=== PATIENT | female | born 1990 | race Caucasian/White ===

== ENCOUNTER 2017-12-23 05:01 | Emergency (ER) | payer BC, MEDICAID, SELFPAY ==
[2017-12-23 05:02] VITALS: PULSE 104; RESP 20; TEMP 37.1; O2SAT 96; BMI 62.1
--- NOTE | 2017-12-23 05:20 | ED.DCSUM_ITS ---
- ER Visit Summary Date of Service: 12/23/17 Chief Complaint: [] Nausea and vomiting History of Present Illness: The patient is a 27 F [] beginning yesterday. Patient reports she had a pyeloplasty on the left side done on November 10, 2017. She reports she is currently being treated for UTI on Keflex. This antibiotic regimen was started yesterday. Patient denies fevers. Reports discomfort in her left upper quadrant. She reports this is always the area she has pain when she has issues with her left kidney. She denies flank pain. No other complaints at this time. Physical Examination: [] Afebrile, vital signs stable. Morbidly obese female in no acute distress. Cardiovascular exam is regular rate and rhythm. Lungs clear to auscultation. Slight left upper quadrant tenderness on exam. No guarding or rebound noted. Test Results: [] White blood cell count 12.2. Electrolytes normal. Urinalysis positive for leukocytes with 50-100 white blood cells. Emergency Department Course and Treatment: [] She given intravenous fluids, Phenergan. After urinalysis returned patient was given intravenous ceftriaxone and 0.5 mg IV Dilaudid. Patient was requesting admission. She has stable vital signs and appears well. I did not feel she was a good candidate for inpatient admission. She was given a dose of ceftriaxone and a prescription for Bactrim DS # 14. She was encouraged to follow-up with her primary care physician. Treatment Plan: [] Discharge on oral antibiotics. Disposition: [] Discharge, stable. Impression: [] UTI This note was generated with [employer] dictation software. It may contain incorrect words, spelling, and punctuation that were not noted in review of the chart prior to signing ED Disposition - Plan for ED Patient: Chief Complaint: Nausea/Vomiting/Diarrhea Referrals: Sonja Farnsworth, NICANOR-C [Primary Care Provider] -
[2017-12-23] MEDS: 0.9% Normal Saline 1,000 ML 1000 ML IV (05:33)
[2017-12-23 05:41] LABS: Mucous, Urine 0 SEEN /hpf (<or=2+)
[2017-12-23 05:44] LABS: Color, Urine Yellow (Yellow); Glucose, Dipstick Normal (Normal); Ketone-Dipstick Negative (Negative); Leukocyte Esterase-Dipstick 500 /ul (Negative); Nitrite-Dipstick Negative (Negative); Occult Blood-Urine 50 /ul (Negative); Protein-Dipstick 30 mg/dl (Negative); Urine Bilirubin Dipstick Negative (Negative); Urine Clarity Sl. Cloudy (Clear); Urine Urobilinogen Normal (Normal)
[2017-12-23 05:46] LABS: Absolute Lymphocyte Count 1.12 X10^3/ul (0.83-4.51); Absolute Neutrophil Count 9.7 X10^3/uL (2.0-7.7); Basophil# 0.01 X10^3/uL; Basophil% 0.1 % (0-1); Eosinophil# 0.35 X10^3/uL; Eosinophils% 2.9 % (0-5); Hematocrit 42.4 % (37-47); Hemoglobin 13.3 g/dl (12.0-15.0); Lymphocyte # 1.12 X10^3/ul (4.0); Lymphocyte % 9.2 % (19-41); Mean Corp Hgb Conc 31.4 g/gl (32-36); Mean Corpuscular Hgb 26.5 pg (27.0-32.0); Mean Corpuscular Volume 84.6 fL (81-99); Mean Platelet Vol. 11.4 fl (6.2-12.0); Monocyte# 0.99 X10^3/uL; Monocyte% 8.1 % (0-10); Neutrophil # 9.72 X10^3/uL (2.7-7.7); Neutrophil % 79.6 % (47-70); Platelet Count 238 K/mm3 (150-450); RBC Distribution Width CV 15.4 % (11.6-14.6); RBC Distribution Width SD 47.6 fl (35.1-43.9); Red Blood Count 5.01 M/mm3 (4.2-5.4); White Blood Count 12.2 K/mm3 (4.4-11.0)
[2017-12-23 05:52] LABS: POSITIVE COUNT NO; POSITIVE DIFFERENTIAL NO; POSITIVE MORPHOLOGY NO
[2017-12-23 05:57] LABS: Amorphous Sediment 1+ URATE; Bacteria RARE /hpf (None Seen); Red Blood Cells-Urine 0-5 SEEN /hpf (0-5); Squamous Epithelial Cells - UA 5-10 SEEN /hpf (5-10); White Blood Cells 50-100 SEEN /hpf (0-5)
[2017-12-23 06:07] LABS: Anion Gap 9 (5-15); BUN 27 mg/dL (7-18); BUN/Creat Ratio 30.1 RATIO (10-20); Calcium,Total 8.5 mg/dL (8.5-10.1); Chloride 108 mmol/L (98-107); EST Glomerular Filtration Rate 81 mL/min (>60); Est Glom Filt Rate - Afr Amer 98 mL/min (>60); Estimated Creatinine Clearance 89.45 ml/min; Glucose 137 mg/dL (70-110); Potassium 4.2 mmol/L (3.5-5.1); Sodium Level 139 mmol/L (136-145)
--- NOTE | 2017-12-23 06:30 | ED.DEP ---
ED Disposition - Plan for ED Patient: Disposition: Home or Assisted Living Chief Complaint: Nausea/Vomiting/Diarrhea Instructions: ED Kidney Infec Female Prescriptions: Sulfamethoxazole/Trimethoprim [Bactrim Ds Tablet] 1 ea PO BID #20 tab Referrals: Sonja Farnsworth, [employer] TECHNICIAN-C [Primary Care Provider] -
[2017-12-23] MEDS: HYDROmorphone 1 MG/ML Syringe 0.5 MG IV (06:31)
--- NOTE | 2017-12-23 06:34 | DCINST.ED_ITS ---
ED Disposition - Plan for ED Patient: Disposition: Home or Assisted Living Chief Complaint: Nausea/Vomiting/Diarrhea Instructions: ED Kidney Infec Female Prescriptions: Sulfamethoxazole/Trimethoprim [Bactrim Ds Tablet] 1 ea PO BID #20 tab Referrals: Sonja Farnsworth, ECOLOGICAL TECHNICAL OFFICER-C [Primary Care Provider] -
[2017-12-23 07:13] VITALS: BP 133/101; PULSE 79; RESP 14; O2SAT 98
== END 2017-12-23 07:14 | disposition home or self-care (01) ==
PROVIDERS: Emergency Provider Emergency Medicine; Family Provider Nurse Practitioner Family; PCP Nurse Practitioner Family
DX: N39.0 Urinary tract infection, site not specified (principal); E66.01 Morbid (severe) obesity due to excess calories; J45.909 Unspecified asthma, uncomplicated; I10 Essential (primary) hypertension; Z72.0 Tobacco use; Z79.51 Long term (current) use of inhaled steroids; Z79.899 Other long term (current) drug therapy
CPT/HCPCS: 80048; 81001; 85025; 96361; 96365; 96375; 99285; A4216; J2405

== ENCOUNTER 2017-12-28 23:41 | Emergency (ER) | payer BC, MEDICAID, SELFPAY ==
[2017-12-28 23:42] VITALS: BP 152/97; PULSE 116; RESP 18; TEMP 37; O2SAT 96; BMI 61.2
--- NOTE | 2017-12-29 01:18 | ED.VISSUMM ---
- ER Visit Summary Date of Service: 12/29/17 Chief Complaint: [] Right calf laceration History of Present Illness: The patient is a 27 F who cut her calf 2 hours ago on purpose with a razor. She has a history of self injury behavior. She is not suicidal. She is remorseful. She has done this over 100 times in the past. She has a psychiatrist and counselor and is on medication. Physical Examination: [] Vital signs reviewed General: Well-nourished well-developed Head: Normocephalic atraumatic Eyes: Pupils equal round and reactive to light extraocular movements intact ENT: TMs clear no hemotympanum no trauma Neck: Nontender full range of motion Cardiovascular: Regular rate rhythm no murmurs normal S1-S2 Respiratory: No distress clear to auscultation bilaterally chest nontender Abdomen: Soft nontender nondistended normal bowel sounds no masses Back: Nontender no CVA tenderness Extremities: Nontender active range of motion ?4 extremities no trauma Skin: 6 cm laceration right lateral calf. 2 cm laceration right lateral calf. Neuro alert oriented cranial nerves II through XII intact normal strength sensation reflexes Test Results: [] Emergency Department Course and Treatment: [] Discussed with crisis. At this time patient is not suicidal. She has a history of cutting behavior. I do not feel she needs to seek crisis at this time. Her wounds were cleansed and closed with 7 and 3 simple sutures respectively. She will follow-up as an outpatient. Treatment Plan: [] Disposition: [] Impression: [] Right calf laceration 6 cm status post suture ?7 Right calf laceration 2 cm status post 3 suture This note was generated with [employer] dictation software. It may contain incorrect words, spelling, and punctuation that were not noted in review of the chart prior to signing ED Disposition - Plan for ED Patient: Chief Complaint: Laceration Referrals: Sonja Farnsworth NP-C [Primary Care Provider] -
--- NOTE | 2017-12-29 01:20 | ED.DEP ---
ED Disposition - Plan for ED Patient: Disposition: Home or Assisted Living Chief Complaint: Laceration Instructions: ED Laceration All Referrals: Sonja Farnsworth, NICANOR-C [Primary Care Provider] -
--- NOTE | 2017-12-29 01:45 | NURSING ---
THIS NURSE WENT TO DISCHARGE PATIENT AND SHE ALREADY LEFT. DR. LOWE MADE AWARE.
== END 2017-12-29 01:48 | disposition home or self-care (01) ==
PROVIDERS: Emergency Provider Emergency Medicine; Family Provider Nurse Practitioner Family; PCP Nurse Practitioner Family
DX: S81.811A Laceration without foreign body, right lower leg, initial encounter (principal); E66.9 Obesity, unspecified; J45.909 Unspecified asthma, uncomplicated; F32.9 Major depressive disorder, single episode, unspecified; Z91.5 Personal history of self-harm; Z79.51 Long term (current) use of inhaled steroids; Z79.899 Other long term (current) drug therapy; X78.8XXA Intentional self-harm by other sharp object, initial encounter; Y93.89 Activity, other specified; Y92.89 Other specified places as the place of occurrence of the external cause; Y99.8 Other external cause status
CPT/HCPCS: 12004; 99281

== ENCOUNTER 2018-02-02 10:06 | Outpatient (RCR) | payer MEDICAID, SELFPAY ==
[2018-02-02 11:17] VITALS: BP 148/99; PULSE 89; RESP 18; TEMP 37.2
[2018-02-02 16:24] LABS: Hematocrit 41.6 % (37-47); Hemoglobin 13.4 g/dl (12.0-15.0); Mean Corp Hgb Conc 32.2 g/gl (32-36); Mean Corpuscular Hgb 26.9 pg (27.0-32.0); Mean Corpuscular Volume 83.4 fL (81-99); Mean Platelet Vol. 11.3 fl (6.2-12.0); Platelet Count 319 K/mm3 (150-450); RBC Distribution Width CV 16.4 % (11.6-14.6); RBC Distribution Width SD 48.7 fl (35.1-43.9); Red Blood Count 4.99 M/mm3 (4.2-5.4); White Blood Count 9.3 K/mm3 (4.4-11.0)
[2018-02-02 16:25] LABS: Scan Indicated on CBC? Y/N NO
[2018-02-02 17:06] LABS: ALB/GLOB Ratio 0.8 RATIO (0.9-2.4); AST(SGOT) 11 U/L (15-37); Alanine Aminotransfer ALT/SGPT 17 U/L (13-56); Albumin, Serum 3.2 g/dL (3.2-5.0); Alkaline Phosphatase 111 U/L (45-117); Anion Gap 9 (5-15); BUN 10 mg/dL (7-18); Calcium,Total 8.6 mg/dL (8.5-10.1); Chloride 107 mmol/L (98-107); Creatinine, Serum 0.62 mg/dL (0.55-1.02); EST Glomerular Filtration Rate 123 mL/min (>60); Est Glom Filt Rate - Afr Amer 149 mL/min (>60); Globulin 4.1 g/dL (2.2-4.2); Glucose 92 mg/dL (74-106); Potassium 3.8 mmol/L (3.5-5.1); Prealbumin 17.7 mg/dL (20.0-40.0); Protein, Total 7.3 g/dL (6.4-8.2); Sodium Level 141 mmol/L (136-145)
[2018-02-02 17:08] LABS: Hemoglobin A1c 5.8 % (4.2-6.3)
--- NOTE | 2018-02-02 17:52 | PCM.WC.HP ---
(1) Open wound of left wrist Status: Acute Code(s): S61.502A - Unspecified open wound of left wrist, initial encounter (2) Open wound of left forearm Status: Acute Code(s): S51.802A - Unspecified open wound of left forearm, initial encounter (3) Borderline type 2 diabetes mellitus Status: Acute Code(s): R73.03 - Prediabetes (4) Self-harming behavior Status: Acute (5) Non-suicidal self harm Status: Acute Code(s): R45.89 - Other symptoms and signs involving emotional state History of Present Illness Date of Service: 02/02/18 Chief Complaint: Open wounds left wrist. History of Wound: Ms. Padilla is a 28-year-old with past medical history of borderline diabetes, self mutilation/harm and bipolar disorder who was referred here due to left wrist wounds of 3 weeks duration. She states that she had put a heat pad on her wrist intentionally to cause the wound but did not think it would be as severe as it currently is. She was subsequently admitted to inpatient psych and has had Silvadene daily applied to the wound. She states that this has helped somewhat however it has not significantly caused any changes. She reports a prior history of prior self cuts but insists that she had no cuts to her wrist. She also reports a prior history of MRSA but denies any significant discharge or tenderness around her wrist. She otherwise feels well and denies chills, fever, nausea, vomiting or any change in her bowel habits. Past Medical History Allergies/Adverse Reactions: Allergies clindamycin Adverse Reaction (Verified 12/28/17 23:42) Upset Stomach Home Medications: Ambulatory Orders Medication Instructions Recorded Clonazepam [Klonopin] 1 mg PO BID 06/07/17 Albuterol Inhaler [Ventolin Hfa 1 - 2 puff INHALATION Q4H PRN PRN 10/14/17 (SP)] Cholecalciferol (Vitamin D3) 1,000 unit PO DAILY 02/02/18 [Vitamin D3] [facility] Carbonate 1,200 mg PO DAILY 02/02/18 Olanzapine [Zyprexa] 25 mg PO DAILY 02/02/18 Prazosin HCl [Minipress] 4 mg PO DAILY 02/02/18 TraMADol [Ultram (G)] 50 mg PO 4X/DAY 02/02/18 Smoking Status: Heavy Smoker (>10/day) Review of Systems Constitutional: Denies: Anorexia, Chills, Fever Eyes: Denies: Pain, Redness HEENT: Denies: Difficulty Hearing, Difficulty Swallowing Cardiovascular: Denies: Chest Pain, Chest Tightness Respiratory: Denies: Cough, Hemoptysis Gastrointestinal: Denies: Abdominal Pain, Hematemesis, Vomiting Genitourinary: Denies: Dysuria Skin: Denies: Dryness, Jaundice - Physical Exam Vital Signs Temp Pulse Resp BP 98.9 F 89 18 148/99 H 02/02/18 11:17 02/02/18 11:17 02/02/18 11:17 02/02/18 11:17 General: Alert, Oriented x3, Cooperative, No apparent distress HEENT: Atraumatic, Normocephalic Oral: Moist Mucosa Neck: Supple Lungs: Normal air movement Cardiovascular: Regular rate, Regular Rhythm, Normal S1, Normal S2 Abdomen: Soft, Non Tender, Obese Extremities: No cyanosis, No edema Skin: Ulcer/ Wound Wound Measurements and Assessment WC - Nurse 1 - General Ulcer Measurement Start: 02/02/18 11:05 Freq: Status: Active Protocol: Activity Type Activity Date Activity User E-Sign Co-Sign Detail Recorded Client Recorded Date Recorded By Document 02/02/18 11:17 [email or web address] 02/02/18 11:26 RB 02/02/18 11:17 Wound Center Nurse 1 [Ulcer Assessment] #1 Left Wrist -Combined with other wound No -Current Size (cm) - Length 2.4 -Current Size (cm) - Width 8.2 -Current Size (cm) - Depth 0.2 -Total Square Cm 19.68 -Photo Taken Yes -Epithelialization Small 1-33% -Tunneling No -Undermining/Tunneling No -Circular Undermining No -Classification - Thickness Full Thickness without Exposed Support Structure -Exudate Amt Small (1-33%) -Exudate Type Serosanguineous -Wound Margin Distinct, Outline Attached -Granulation Amt Large (67-100%) -Granulation Quality [place] -Slough/Fibrin Yes -Necrosis Amt Small (1-33%) -Necrotic Tissue Type Adherent Slough -Structure Exposed N/A -Texture (Sharonda-wound Skin Appearance) Assessed -Moisture (Sharonda-wound Skin Appearance Assessed ) -Color (Sharonda-wound Skin Appearance) Assessed -Temperature (Sharonda-wound Skin No Abnormality Appearance) (Pt Warm) -Tenderness on Palpation (Sharonda-wound No Skin Appearance) -Ulcer Cleansing Rinsed/ Irrigated with Saline -Foul Odor after Cleansing No -Anesthetic Used 4% Lidocaine Solution WC - Nurse 2 - General Ulcer CM Notes Start: 02/02/18 11:05 Freq: Status: Active Protocol: Activity Type Activity Date Activity User E-Sign Co-Sign Detail Recorded Client Recorded Date Recorded By Document 02/02/18 11:59 DV [id number] 02/02/18 12:19 DV 02/02/18 11:59 Wound Center Nurse 2 [Procedure/Treatment] #2 Left Distal Lateral Forearm -Time 12:14 -Correct Patient Yes -Correct Side, Site, Position Yes -Correct Procedure Yes -Procedure Performed Yes -Type of Procedure Debridement -Clinical Debridement Subcutaneous -Post Debridement Size (cm) - Length 0.4 -Post Debridement Size (cm) - Width 1.1 -Post Debridement Size (cm) - Depth 0.2 -Total Square Cm 0.44 -Wound/Ulcer Outcome Not Healed -Ulcer Cleansing Rinsed/ Irrigated with Saline -Foul Odor after Cleansing No -Bioengineered Tissue No -Bleeding Controlled with Pressure -Treatment Response Procedure Tolerated Well #1 Left Wrist -Time 12:17 -Correct Patient Yes -Correct Side, Site, Position Yes -Correct Procedure Yes -Procedure Performed Yes -Type of Procedure Debridement -Clinical Debridement Subcutaneous -Post Debridement Size (cm) - Length 2.3 -Post Debridement Size (cm) - Width 6.0 -Post Debridement Size (cm) - Depth 0.2 -Total Square Cm 13.80 -Wound/Ulcer Outcome Not Healed -Ulcer Cleansing Rinsed/ Irrigated with Saline -Foul Odor after Cleansing No -Bioengineered Tissue No -Bleeding Controlled with Pressure -Treatment Response Procedure Tolerated Well [See Physician Procedure note for Specifics] Pain Scale: 0-10 Numeric [Pain] -Is Patient Pain Free? Yes Musculoskeletal: No Muscle Wasting Neurological: Cranial nerves II-XII grossly intact Psych/Mental Status: Normal Affect Debridement Note Post-Debridement Measurements/Treatment [email or web address] - Nurse 2 - General Ulcer CM Notes Start: 02/02/18 11:05 Freq: Status: Active Protocol: Activity Type Activity Date Activity User E-Sign Co-Sign Detail Recorded Client Recorded Date Recorded By Document 02/02/18 11:59 DV [id number] 02/02/18 12:19 DV 02/02/18 11:59 Wound Center Nurse 2 #2 Left Distal Lateral Forearm -Time 12:14 -Correct Patient Yes -Correct Side, Site, Position Yes -Correct Procedure Yes -Procedure Performed Yes -Type of Procedure Debridement -Clinical Debridement Subcutaneous -Post Debridement Size (cm) - Length 0.4 -Post Debridement Size (cm) - Width 1.1 -Post Debridement Size (cm) - Depth 0.2 -Total Square Cm 0.44 -Wound/Ulcer Outcome Not Healed -Ulcer Cleansing Rinsed/ Irrigated with Saline -Foul Odor after Cleansing No -Bioengineered Tissue No -Bleeding Controlled with Pressure -Treatment Response Procedure Tolerated Well #1 Left Wrist -Time 12:17 -Correct Patient Yes -Correct Side, Site, Position Yes -Correct Procedure Yes -Procedure Performed Yes -Type of Procedure Debridement -Clinical Debridement Subcutaneous -Post Debridement Size (cm) - Length 2.3 -Post Debridement Size (cm) - Width 6.0 -Post Debridement Size (cm) - Depth 0.2 -Total Square Cm 13.80 -Wound/Ulcer Outcome Not Healed -Ulcer Cleansing Rinsed/ Irrigated with Saline -Foul Odor after Cleansing No -Bioengineered Tissue No -Bleeding Controlled with Pressure -Treatment Response Procedure Tolerated Well Pain Scale: 0-10 Numeric Is Patient Pain Free? Yes Wound debrided: Left wrist wound Wound Grade/Stage: Stage II Type of Debridement: Excisional debridement Anesthesia Used: 4% Lidocaine Solution Depth: Down to and including healthy tissue, in the subcutaneous layer Percentage of wound debrided: 100 Instrument Used: 5mm curette Tissue Removed: Slough, Biofilm and Devitalized tissue Severity: Fat Layer Exposed Amount of bleeding with debridement: Mild Bleeding Controlled with: Pressure Patient tolerated procedure well - Additional Wound Wound debrided: Left lateral forearm Wound Grade/Stage: Stage II Type of Debridement: Excisional debridement Anesthesia Used: 4% Lidocaine Solution Depth: Down to and including healthy tissue, in the subcutaneous layer Percentage of wound debrided: 100 Instrument Used: 5mm curette Tissue Removed: Slough and Devitalized tissue Severity: Fat Layer Exposed Amount of bleeding with debridement: Mild Bleeding Controlled with: Pressure Patient tolerated procedure: Patient tolerated procedure well Assessment/Plan Assessment: Open wound to left wrist with fat layer exposed. Open wound to the left lateral forearm with fat layer exposed. Self harming/mutilation behavior. Borderline diabetes mellitus. Plan: History of burn wound about 3 weeks ago to her left wrist and lateral forearm. Intentional. Has been in inpatient psych for the last 3 weeks, recently discharged. She has had daily dressing with Silvadene during her inpatient stay. No significant progress in wound. Wound debridement done as documented. Procedure was well-tolerated. Cultures taken. CBC, CMP, A1c and prealbumin also ordered. I believe patient will benefit from Purapply initially and possibly subsequently a skin substitute as she has currently used Silvadene for 3 weeks without significant change. Fibrochol with Adaptic covering daily for now. High-protein diet/supplements. Follow-up in 1 week. This note was generated with [employer] dictation software. It may contain incorrect words, spelling, and punctuation that were not noted in checking the note before signing.
== END 2018-02-25 23:59 ==
LOC: WC 10:06
PROVIDERS: Family Provider Nurse Practitioner Family; PCP Nurse Practitioner Family; Visit Provider Internal Medicine
DX: T23.072A Burn of unspecified degree of left wrist, initial encounter (principal); T22.012A Burn of unspecified degree of left forearm, initial encounter; T79.8XXA Other early complications of trauma, initial encounter; X19.XXXA Contact with other heat and hot substances, initial encounter; R73.09 Other abnormal glucose; S51.802A Unspecified open wound of left forearm, initial encounter; S61.502A Unspecified open wound of left wrist, initial encounter; R45.89 Other symptoms and signs involving emotional state; Z91.5 Personal history of self-harm; Z86.14 Personal history of Methicillin resistant Staphylococcus aureus infection; F17.200 Nicotine dependence, unspecified, uncomplicated; Z79.899 Other long term (current) drug therapy
CPT/HCPCS: 11042; 80053; 83036; 84134; 85027; 87070; 87075; 87077; 87186; 87205; 99213; G0463

== ENCOUNTER 2018-06-12 16:37 | Observation (INO) | payer MEDICARE, MEDICAID, SELFPAY ==
[2018-06-12 16:38] VITALS: BP 144/78; PULSE 109; RESP 18; TEMP 37.1; O2SAT 98; BMI 57.2
--- NOTE | 2018-06-12 18:19 | EKG12_ITS ---
Test Reason : SOB Blood Pressure : / mmHG Vent. Rate : 081 BPM Atrial Rate : 081 BPM P-R Int : 156 ms QRS Dur : 088 ms QT Int : 382 ms P-R-T Axes : 041 007 008 degrees QTc Int : 443 ms Normal sinus rhythm Normal ECG Confirmed by CHANDLER RAMIREZ MD ([id number]), art editor ELISE KENDALL ([id number]) on 06/14/2018 2:17:24 PM Referred By: Kurt Cabrera Confirmed By:CHANDLER RAMIREZ MD
--- NOTE | 2018-06-12 18:20 | CT_ITS ---
STUDY: CT ABDOMEN AND PELVIS WITH CONTRAST REASON FOR EXAM: Female, 28 years old. Left upper quadrant pain RADIATION DOSAGE (If Supplied By Facility): CTDIvol = ( 23.88 ) mGy, DLP = ( 1990.31 ) mGycm TECHNIQUE: Transaxial images were obtained from the dome of the diaphragm to the symphysis pubis without oral contrast. 100ML ml of Isovue 300 contrast was administered. Sagittal and coronal images were reconstructed. Individualized dose optimization techniques were used for this CT. COMPARISON: None. FINDINGS: The visualized lung bases are unremarkable. The visualized portions of the heart are within normal limits. Normal liver. Normal gallbladder and extrahepatic biliary system. Normal spleen. Normal pancreas. Normal bilateral adrenal glands. Normal right kidney. Mild pelvicalyceal fullness/hydronephrosis of the left kidney. Normal visualized stomach. Normal small intestine. Normal colon. The appendix is visualized and appears normal. Normal abdominal aorta. Normal inferior vena cava. Normal retroperitoneum. Normal urinary bladder. Normal uterus. Normal abdominal wall. Normal osseous structures. CT/Abdomen/Pelvis W IV Cont ONLY IMPRESSION: Mild left pelvicalyceal fullness/ hydronephrosis. Electronically Signed: Jr Hunter DO at 20:13 EDT Tel [phone], Service support ,
--- NOTE | 2018-06-12 18:22 | CT_ITS ---
STUDY: CTA CHEST REASON FOR EXAM: Female, 28 years old. Left upper quadrant pain RADIATION DOSAGE (If Supplied By Facility): CTDIvol = ( 23.88 ) mGy, DLP = ( 1990.31 ) mGycm TECHNIQUE: The examination was performed with the intravenous administration of 100ML ml of Isovue 250 contrast material. Post-processing of the angiographic images was performed, with multiplanar reformation and 3D reconstruction. Individualized dose optimization techniques were used for this CT. COMPARISON: None. FINDINGS: Normal enhancement of the main pulmonary artery and right and left pulmonary arteries. Normal enhancement of the bilateral peripheral pulmonary arteries. There is no demonstrated pulmonary embolism. Normal thoracic aorta and visualized great vessels. There is no demonstrated aortic dissection. Normal heart and pericardium. Normal mediastinum. Normal hilar regions. Normal visualized trachea and bronchi. The lungs are well expanded. Normal pulmonary parenchyma. Normal pleura. Normal chest wall structures. Mild degenerative vertebral changes. Normal visualized upper abdomen. CT/CTA Chest W/WO Contrast IMPRESSION: Normal CTA chest examination, without a demonstrated pulmonary embolism or arterial dissection. Electronically Signed: Jr Hunter DO at 20:21 EDT Tel [phone], Service support ,
[2018-06-12 18:51] LABS: Absolute Neutrophil Count 7.5 X10^3/uL (2.0-7.7); Basophil# 0.03 X10^3/uL; Basophil% 0.3 % (0-1); Hematocrit 41.7 % (37-47); Hemoglobin 13.7 g/dl (12.0-15.0); Lymphocyte % 15.9 % (19-41); Mean Corp Hgb Conc 32.9 g/gl (32-36); Mean Corpuscular Hgb 26.4 pg (27.0-32.0); Mean Corpuscular Volume 80.3 fL (81-99); Mean Platelet Vol. 11.4 fl (6.2-12.0); Monocyte# 0.74 X10^3/uL; Monocyte% 7.3 % (0-10); Neutrophil % 74.3 % (47-70); Platelet Count 298 K/mm3 (150-450); Red Blood Count 5.19 M/mm3 (4.2-5.4); White Blood Count 10.1 K/mm3 (4.4-11.0)
[2018-06-12 18:52] LABS: POSITIVE COUNT NO; POSITIVE DIFFERENTIAL NO; POSITIVE MORPHOLOGY NO
[2018-06-12] MEDS: 0.9% Normal Saline 1,000 ML 1000 ML IV (18:53)
[2018-06-12] MEDS: Ondansetron 4 MG/2 ML Vial IV ×2 (18:53→23:28)
[2018-06-12] MEDS: Morphine 4 MG/ML Syringe IV (18:53)
[2018-06-12 19:00] LABS: Color, Urine Amber (Yellow); Glucose, Dipstick Normal (Normal); Ketone-Dipstick 5 mg/dl (Negative); Leukocyte Esterase-Dipstick 500 /ul (Negative); Nitrite-Dipstick Positive (Negative); Occult Blood-Urine 250 /ul (Negative); Protein-Dipstick 30 mg/dl (Negative); Specific Gravity, Urine 1.025 (1.002-1.030); Urine Clarity Cloudy (Clear); Urine Urobilinogen 1 mg/dl (Normal)
[2018-06-12 19:13] LABS: Urine Bilirubin Dipstick 1 mg/dL (Negative)
[2018-06-12 19:14] LABS: Bacteria RARE /hpf (None Seen); Mucous, Urine RARE /hpf (<or=2+); Red Blood Cells-Urine > 100 SEEN /hpf (0-5); Squamous Epithelial Cells - UA 0-5 SEEN /hpf (5-10); White Blood Cells 25-50 SEEN /hpf (0-5)
[2018-06-12 19:17] LABS: AST(SGOT) 13 U/L (15-37); Alanine Aminotransfer ALT/SGPT 19 U/L (13-56); Albumin, Serum 3.6 g/dL (3.2-5.0); Alkaline Phosphatase 115 U/L (45-117); Anion Gap 10 (5-15); BUN 11 mg/dL (7-18); BUN/Creat Ratio 14.4 RATIO (10-20); Bilirubin, Direct 0.11 mg/dL (0.00-0.30); Calcium,Total 8.9 mg/dL (8.5-10.1); Chloride 108 mmol/L (98-107); Creatinine, Serum 0.76 mg/dL (0.55-1.02); EST Glomerular Filtration Rate 97 mL/min (>60); Est Glom Filt Rate - Afr Amer 117 mL/min (>60); Estimated Creatinine Clearance 105.01 ml/min; Globulin 4.1 g/dL (2.2-4.2); Glucose 103 mg/dL (74-106); Lipase 49 U/L (73-393); Potassium 3.8 mmol/L (3.5-5.1); Pregnancy, Serum, hCG Quali. NEGATIVE Negative (0-9 Nonpreg); Protein, Total 7.7 g/dL (6.4-8.2); Sodium Level 143 mmol/L (136-145)
--- NOTE | 2018-06-12 21:15 | ED.VISSUMM ---
- ER Visit Summary Date of Service: 06/12/18 Chief Complaint: Abdominal pain History of Present Illness: The patient is a 28 F who presents with abdominal pain. She has been having pain for last 1-2 months. She complains of left upper quadrant abdominal pain and a left posterior shoulder pain. Her pain is worse with inspiration. She also states she feels short of breath. She intermittently feels lightheaded and as if she may pass out. She has had a few episodes of emesis over the weekend but no vomiting today. She denies fevers. She does have a history of multiple ureteral stents and pyeloplasty. Physical Examination: Heart rate 109 vitals otherwise unremarkable Moist mucous membranes Heart regular rhythm tachycardia Lungs are clear Abdomen soft she is tender to palpation in the left upper quadrant Alert Test Results: CBC BMP unremarkable. Hepatic function lipase unremarkable. UA does show 500 leukocyte esterase, positive nitrates, 25-50 WBCs and greater than 100 RBCs. negative. CTA of the chest is normal. CT the abdomen and pelvis shows mild left pericalyceal fullness. Emergency Department Course and Treatment: Given patient's report of shortness of breath near syncope and lightheadedness a CTA of the chest was obtained to rule out PE. This was normal. Her urine does appear obviously infected. Given tachycardia left flank pain and vomiting I do believe this represents pyelonephritis. She was given IV Rocephin. She was discussed with the hospitalist and admitted. Treatment Plan: [] Disposition: Admit Impression: Pyelonephritis This note was generated with [employer] dictation software. It may contain incorrect words, spelling, and punctuation that were not noted in review of the chart prior to signing ED Disposition - Plan for ED Patient: Chief Complaint: Abd Pain Referrals: Sonja Farnsworth, NICANOR-C [Primary Care Provider] -
--- NOTE | 2018-06-12 21:21 | HP.PCM_ITS ---
Problem List (1) Pyelonephritis Status: Acute (2) Nausea and vomiting Status: Acute History of Present Illness Date of Admission: 06/12/18 Chief Complaint: nausea and vomiting The patient is a 28 year old female patient who presents to the ER with nausea and vomiting. She has had increasing left flank pain over the past day or so. She has a history of pyeloplasty in October 2017 and has had recurrence of UTI since. He UA is positive for leukocytes and nitrites and her CT scan shows left hydronephrosis and no renal calculi. Her pain and nausea are now controlled medically. She has a history of multiple mental health diagnoses and repeated self mutilation which does not appear to be an acute issue at this time. She will be admitted overnight for observation of pyelonephritis. Past Medical History Allergies clindamycin Adverse Reaction (Verified 06/12/18 16:37) Upset Stomach Home Medications: Ambulatory Orders Medication Instructions Recorded Clonazepam [Klonopin] 1 mg PO BID 06/07/17 Albuterol Inhaler [Ventolin Hfa 1 - 2 puff INHALATION Q4H PRN PRN 10/14/17 (SP)] Cholecalciferol (Vitamin D3) 1,000 unit PO DAILY 02/02/18 [Vitamin D3] [place] Carbonate 1,200 mg PO DAILY 02/02/18 Olanzapine [Zyprexa] 25 mg PO DAILY 02/02/18 Prazosin HCl [Minipress] 4 mg PO DAILY 02/02/18 traMADol [Ultram (G)] 50 mg PO 4X/DAY 02/02/18 Psychiatric History: Anxiety, Bipolar, Depression, Prior suicide attempt Smoking Status: Current every day smoker Drugs: - - history of narcotic abuse - *Family History Maternal History Items: No pertinent history Review of Systems Constitutional: Denies: Chills, Fever, Weight Change HEENT: Denies: Head Aches, Sinus Congestion, Sinus Drainage Cardiovascular: Denies: Chest Pain, Palpitations Respiratory: Denies: Cough, Shortness of breath at rest, Sputum production Gastrointestinal: Reports: Abdominal Pain, Nausea, Vomiting Genitourinary: Reports: Dysuria, Frequency, Hematuria, Urgency Musculoskeletal: Reports: - - left cva tenderness. Denies: Joint Pain, Joint Tenderness Skin: Denies: Rash, Wounds Neurological: Denies: Numbness, Tingling, Focal weakness Psychiatric: Denies: Anxiety, Depression, Homicidal Ideations, Suicidal Ideations Hematologic/ Lymphatic: Denies: Easy Bruising, Easy Bleeding VTE Information - Inpt Only VTE Present on Admission: No VTE Mechan Device Prophylaxis: None VTE Pharm Prophylaxis ordered?: Yes Patient Problems: Active and Suspected Problems Pyelonephritis (Acute) Nausea and vomiting (Acute) - Physical Exam General: Alert, Oriented x3, Cooperative HEENT: Atraumatic, Normocephalic Neck: Supple Lungs: Clear to auscultation, Normal air movement Cardiovascular: Regular rate, Normal S1, Normal S2, No murmurs Abdomen: Bowel Sounds Present, Soft, Non Tender, Obese, - - +left CVA Extremities: No edema, Capillary Refill Less than 3 Seconds Skin: No rashes, - - multiple scars from previous self mutilation Musculoskeletal: No Tenderness to Palpation of Joints or Extremities Neurological: Neuro grossly intact Psych/Mental Status: Normal Affect, Appropriate Vital Signs Temp Pulse Resp BP Pulse Ox 98.8 F 109 H 18 144/78 H 98 06/12/18 16:38 06/12/18 16:38 06/12/18 16:38 06/12/18 16:38 06/12/18 16:38 Oxygen Delivery Method Room Air Weight: 354 lb 11.58 oz Body Mass Index (BMI) 57.2 Laboratory Tests Past 24 Hrs 06/12/18 06/12/18 06/12/18 18:36 18:41 18:41 WBC 10.1 RBC 5.19 Hgb 13.7 Hct 41.7 MCV 80.3 L MCH 26.4 L MCHC 32.9 RDW 15.0 H RDW Differential 44.0 H Plt Count 298 MPV 11.4 Immature Gran % (Auto) 0.200 Neut % (Auto) 74.3 H Lymph % (Auto) 15.9 L [place] % (Auto) 7.3 Eos % (Auto) 2.0 Baso % (Auto) 0.3 Absolute Neuts (auto) 7.5 Absolute Lymphs (auto) 1.60 Total Counted Not Reportable Sodium 143 Potassium 3.8 Chloride 108 H Carbon Dioxide 25.0 Anion Gap 10 BUN 11 Creatinine 0.76 Estim Creat Clear Calc 105.01 Est GFR (MDRD) Af Amer 117 Est GFR (MDRD) Non-Af 97 BUN/Creatinine Ratio 14.4 Glucose 103 Calcium 8.9 Total Bilirubin 0.40 Direct Bilirubin 0.11 AST 13 L ALT 19 Alkaline Phosphatase 115 Total Protein 7.7 Albumin 3.6 Globulin 4.1 Lipase 49 L Serum , Qual Urine Color Kelsie Urine Clarity Cloudy Urine pH 5.0 Ur Specific [place] 1.025 Urine Protein 30 H Urine Glucose (UA) Normal Urine Ketones 5 H Urine Occult Blood 250 H Urine Nitrite Positive H Urine Bilirubin 1 H Urine Urobilinogen 1 H Ur Leukocyte Esterase 500 H Urine RBC > 100 SEEN Urine WBC 25-50 SEEN Ur Squamous Epith Cells 0-5 SEEN Urine Bacteria RARE Urine Mucus RARE 06/12/18 18:41 WBC RBC Hgb Hct MCV MCH MCHC RDW RDW Differential Plt Count MPV Immature Gran % (Auto) Neut % (Auto) Lymph % (Auto) [place] % (Auto) Eos % (Auto) Baso % (Auto) Absolute Neuts (auto) Absolute Lymphs (auto) Total Counted Sodium Potassium Chloride Carbon Dioxide Anion Gap BUN Creatinine Estim Creat Clear Calc Est GFR (MDRD) Af Amer Est GFR (MDRD) Non-Af BUN/Creatinine Ratio Glucose Calcium Total Bilirubin Direct Bilirubin AST ALT Alkaline Phosphatase Total Protein Albumin Globulin Lipase Serum , Qual NEGATIVE Urine Color Urine Clarity Urine pH Ur Specific [place] Urine Protein Urine Glucose (UA) Urine Ketones Urine Occult Blood Urine Nitrite Urine Bilirubin Urine Urobilinogen Ur Leukocyte Esterase Urine RBC Urine WBC Ur Squamous Epith Cells Urine Bacteria Urine Mucus Assessment/Plan All Active Problems Open wound of left wrist (Acute) Open wound of left forearm (Acute) Borderline type 2 diabetes mellitus (Acute) Self-harming behavior (Acute) Non-suicidal self harm (Acute) Pyelonephritis (Acute) Nausea and vomiting (Acute) Sprain of foot, left (Acute) - pyleonephritis Plan - admit to general medical floor for observation - 1 gram Rocephin IV q day - zofran 4mg IV q8hrs prn - toradol 30mg IV q 6hrs prn pain (no narcotics given past abuse of heroine) - continue routine home medications - LMWH for DVT prophylaxis - CBC BMP in am - normal saline at 100 cc/hr Code Visit OBSV E&M: 23864 Initial observation care L2
[2018-06-12 21:29] VITALS: BP 113/84; PULSE 63; RESP 20; O2SAT 100
[2018-06-12] MEDS: Ceftriaxone 1 GM/50 ML BAG IV (21:40)
[2018-06-12 22:03] VITALS: BP 142/100; PULSE 80; RESP 20; TEMP 36.9; O2SAT 97
[2018-06-12 22:06] VITALS: BMI 57.9
[2018-06-12 22:12] VITALS: BMI 57.9
[2018-06-12] MEDS: Mirtazapine 15 MG Tablet PO (22:52)
[2018-06-12] MEDS: clonazePAM 1 MG Tablet PO (22:52)
[2018-06-12] MEDS: Ketorolac 30 MG/ML Syringe IV (22:53)
[2018-06-13 04:00] VITALS: BP 98/58; PULSE 79; RESP 18; TEMP 36.6; O2SAT 95
--- NOTE | 2018-06-13 07:30 | PCM.PROGNOTE ---
Patient Problems: Active and Suspected Problems Pyelonephritis (Acute) Nausea and vomiting (Acute) Subjective: The patient is a 28-year-old female with a past medical history of anxiety, bipolar disorder, depression with prior suicide attempts, self-inflicted injuries and hx of multiple ureteral stents and pyeloplasty in October 2017 who presented to the ED on 06/12/2018 complaining of nausea and vomiting. She additionally complained of abdominal pain that had persisted for 1-2 months. The pain was located in the left upper quadrant of the abdomen and radiated to the left posterior shoulder. She complained of shortness of breath and a CTA of the chest was obtained and revealed no pulmonary emboli. In the emergency room the UA was positive for leukocytes, RBCs and nitrites and a CT scan showed left hydronephrosis with no renal calculi. White blood cell count was 10.1 with 74% neutrophils. Hemoglobin and platelets were within normal limits. MCV is decreased at 80.3. BMP was unremarkable and the creatinine was 0.76. She was admitted to the hospital and started on ceftriaxone. The urine was obtained by clean catch in a patient with multiple psych disturbances and a BMI in excess of 50. She denies dysuria. She is afebrile and has a normal WBC count and the diff is unremarkable. She refuses to be straight cathed. Will DC on an antibiotic today and have her follow up with her PCP in 5-7 days or her urologist. The mild hydronephrosis on the left may be chronic since she has had multiple ureteral stents and a pyeloplasty. - Physical Exam General: Alert, Cooperative, No apparent distress, - - lying on her side in bed and looks like she has no distress. Not toxic appearing HEENT: Atraumatic, PERRLA, EOMI Oral: Moist Mucosa Lungs: Clear to auscultation, Diminished Cardiovascular: Regular rate, Regular Rhythm, No murmurs Abdomen: Bowel Sounds Present, Soft, Obese, Tender - at the left CVA Skin: No rashes Neurological: Cranial nerves II-XII grossly intact, Neuro grossly intact Vital Signs Temp Pulse Resp BP Pulse Ox 97.8 F 79 18 98/58 L 95 06/13/18 04:00 06/13/18 04:00 06/13/18 04:00 06/13/18 04:00 06/13/18 04:00 Oxygen Delivery Method Room Air Weight: 358 lb 11.073 oz Body Mass Index (BMI) 57.9 Intake and Output for Last 24 Hours 06/11/18 06/12/18 06/13/18 23:59 23:59 23:59 Intake Total 1764 / 1764 Output Total 200 / 200 Balance 1564 / 1564 Medical Necessity - Tobacco Use Smoking Status: Current every day smoker Assessment/Plan All Active Problems Open wound of left wrist (Acute) Open wound of left forearm (Acute) Borderline type 2 diabetes mellitus (Acute) Self-harming behavior (Acute) Non-suicidal self harm (Acute) Pyelonephritis (Acute) Nausea and vomiting (Acute) Sprain of foot, left (Acute) Impressions 1. possible UTI. Pt refuses a straight cath. She is afebrile with a normal WBC and an unremarkable diff. Will DC on Duricef. F/U with PCP or urologist in 5-7 days. 2. Multiple psychiatric disorders complicate care, management 3. Super obesity DC home
--- NOTE | 2018-06-13 08:25 | PCM.DC ---
- Discharge Diagnoses Current Active Problems: Current Active and Chronic Problems Pyelonephritis (Acute) Nausea and vomiting (Acute) You will use the following diet at home:: Other - Resume previous diet Your food should be the consistency of: Regular Your liquids should be the consistency of: Regular/Thin Discharge Activity: Return to Normal Activity Call your doctor if you observe: Fever of 101 or Higher, Inability to urinate, - - recurrent nausea and vomiting Additional Instructions: You may have a urinary tract infection. You have not had a fever and your white blood cell count is normal. You have not vomited since admission to the floor. there is a mild enlargement of the left kidney but your kidney function is normal. Since we do not have any old CT scans on you this may be your normal kidney size since you have had a pyeloplasty and multiple stents. I am discharging you on an antibiotic that you will take twice a day for the next 7 days. Please follow up with your PCP in 5-7 days or the urologist you routinely follow with. Pending Tests on Discharge: none. Allergies/Adverse Reactions: Allergies clindamycin Adverse Reaction (Verified 06/12/18 16:37) Upset Stomach Medications to take at Discharge Clonazepam [Klonopin] 1 mg PO BID 06/07/17 Albuterol Inhaler [Ventolin Hfa] 1 - 2 puff INHALATION Q4H PRN PRN 10/14/17 [place] Carbonate 900 mg PO QHS 02/02/18 Mirtazapine [Remeron] 15 mg PO QHS 06/12/18 Cefadroxil 1 gm PO BID #14 tab 06/13/18 The following prescriptions were given: Cefadroxil 1 gm PO BID #14 tab Primary Care Physician: Sonja Farnsworth NP-C [Primary Care Provider] - Please follow up with your Primary Care Physician in: 5-7 days Test Results: Test results from this visit will be discussed in further detail at your follow-up appointment, if applicable. Proposed Discharge Date: 06/13/18
--- NOTE | 2018-06-13 08:35 | DCINST_ITS ---
- Discharge Diagnoses Current Active Problems: Current Active and Chronic Problems Pyelonephritis (Acute) Nausea and vomiting (Acute) You will use the following diet at home:: Other - Resume previous diet Your food should be the consistency of: Regular Your liquids should be the consistency of: Regular/Thin Discharge Activity: Return to Normal Activity Call your doctor if you observe: Fever of 101 or Higher, Inability to urinate, - - recurrent nausea and vomiting Additional Instructions: You may have a urinary tract infection. You have not had a fever and your white blood cell count is normal. You have not vomited since admission to the floor. there is a mild enlargement of the left kidney but your kidney function is normal. Since we do not have any old CT scans on you this may be your normal kidney size since you have had a pyeloplasty and multiple stents. I am discharging you on an antibiotic that you will take twice a day for the next 7 days. Please follow up with your PCP in 5-7 days or the urologist you routinely follow with. Pending Tests on Discharge: none. Allergies/Adverse Reactions: Allergies clindamycin Adverse Reaction (Verified 06/12/18 16:37) Upset Stomach Medications to take at Discharge Clonazepam [Klonopin] 1 mg PO BID 06/07/17 Albuterol Inhaler [Ventolin Hfa] 1 - 2 puff INHALATION Q4H PRN PRN 10/14/17 [place] Carbonate 900 mg PO QHS 02/02/18 Mirtazapine [Remeron] 15 mg PO QHS 06/12/18 Cefadroxil 1 gm PO BID #14 tab 06/13/18 The following prescriptions were given: Cefadroxil 1 gm PO BID #14 tab Primary Care Physician: Sonja Farnsworth NP-C [Primary Care Provider] - Please follow up with your Primary Care Physician in: 5-7 days Test Results: Test results from this visit will be discussed in further detail at your follow- up appointment, if applicable. Proposed Discharge Date: 06/13/18
--- NOTE | 2018-06-13 08:44 | PCM.DC.SUM ---
Discharge Date and Diagnosis - Problem List Patient Problems: Active and Suspected Problems Possible urinary tract infection (Acute) Date of Admission: 06/12/18 Date of Discharge: 06/13/18 - Primary Discharge Diagnosis Active and Suspected Problems Possible urinary tract infection (Acute) - Secondary Discharge Diagnosis Chronic Problems Chronic anxiety (Chronic) Bipolar disorder (Chronic) Super obese (Chronic) Borderline type 2 diabetes mellitus (Chronic) Self-harming behavior (Chronic) Non-suicidal self harm (Chronic) Hospital Course and Treatment Imaging Results: Clinical Impression(s) from Imaging Studies Abdomen/Pelvis CT 06/12/18 18:20 IMPRESSION: Mild left pelvicalyceal fullness/ hydronephrosis. Electronically Signed: Jr Hunter DO at 20:13 EDT Tel [phone], Service support , Chest CTA 06/12/18 18:22 IMPRESSION: Normal CTA chest examination, without a demonstrated pulmonary embolism or arterial dissection. Electronically Signed: Jr Hunter DO at 20:21 EDT Tel [phone], Service support , Laboratory Tests 06/12/18 06/12/18 06/12/18 18:36 18:41 18:41 WBC 10.1 RBC 5.19 Hgb 13.7 Hct 41.7 MCV 80.3 L MCH 26.4 L MCHC 32.9 RDW 15.0 H RDW Differential 44.0 H Plt Count 298 MPV 11.4 Immature Gran % (Auto) 0.200 Neut % (Auto) 74.3 H Lymph % (Auto) 15.9 L [place] % (Auto) 7.3 Eos % (Auto) 2.0 Baso % (Auto) 0.3 Absolute Neuts (auto) 7.5 Absolute Lymphs (auto) 1.60 Total Counted Not Reportable Sodium 143 Potassium 3.8 Chloride 108 H Carbon Dioxide 25.0 Anion Gap 10 BUN 11 Creatinine 0.76 Estim Creat Clear Calc 105.01 Est GFR (MDRD) Af Amer 117 Est GFR (MDRD) Non-Af 97 BUN/Creatinine Ratio 14.4 Glucose 103 Calcium 8.9 Total Bilirubin 0.40 Direct Bilirubin 0.11 AST 13 L ALT 19 Alkaline Phosphatase 115 Total Protein 7.7 Albumin 3.6 Globulin 4.1 Lipase 49 L Serum , Qual Urine Color Kelsie Urine Clarity Cloudy Urine pH 5.0 Ur Specific [place] 1.025 Urine Protein 30 H Urine Glucose (UA) Normal Urine Ketones 5 H Urine Occult Blood 250 H Urine Nitrite Positive H Urine Bilirubin 1 H Urine Urobilinogen 1 H Ur Leukocyte Esterase 500 H Urine RBC > 100 SEEN Urine WBC 25-50 SEEN Ur Squamous Epith Cells 0-5 SEEN Urine Bacteria RARE Urine Mucus RARE 06/12/18 18:41 WBC RBC Hgb Hct MCV MCH MCHC RDW RDW Differential Plt Count MPV Immature Gran % (Auto) Neut % (Auto) Lymph % (Auto) [place] % (Auto) Eos % (Auto) Baso % (Auto) Absolute Neuts (auto) Absolute Lymphs (auto) Total Counted Sodium Potassium Chloride Carbon Dioxide Anion Gap BUN Creatinine Estim Creat Clear Calc Est GFR (MDRD) Af Amer Est GFR (MDRD) Non-Af BUN/Creatinine Ratio Glucose Calcium Total Bilirubin Direct Bilirubin AST ALT Alkaline Phosphatase Total Protein Albumin Globulin Lipase Serum , Qual NEGATIVE Urine Color Urine Clarity Urine pH Ur Specific [place] Urine Protein Urine Glucose (UA) Urine Ketones Urine Occult Blood Urine Nitrite Urine Bilirubin Urine Urobilinogen Ur Leukocyte Esterase Urine RBC Urine WBC Ur Squamous Epith Cells Urine Bacteria Urine Mucus None Operations: None Procedures: None Summary of Care Provided: The patient is a 28-year-old female with a past medical history of anxiety, bipolar disorder, depression with prior suicide attempts, self-inflicted injuries and hx of multiple ureteral stents and pyeloplasty in October 2017 who presented to the ED on 06/12/2018 complaining of nausea and vomiting. She additionally complained of abdominal pain that had persisted for 1-2 months. The pain was located in the left upper quadrant of the abdomen and radiated to the left posterior shoulder. She complained of shortness of breath and a CTA of the chest was obtained and revealed no pulmonary emboli. In the emergency room the UA was positive for leukocytes, RBCs and nitrites and a CT scan showed mild left hydronephrosis with no renal calculi and no cathi-nephritic stranding. White blood cell count was 10.1 with 74% neutrophils. Hemoglobin and platelets were within normal limits. MCV was decreased at 80.3. BMP was unremarkable and the creatinine was 0.76. She was admitted to the hospital and started on ceftriaxone. The urine was obtained by clean catch in a patient with multiple psych disturbances and a BMI in excess of 50. She had no vomiting while in the hospital and received Zofran only once. She was afebrile throughout her stay. She denied dysuria to me on the day of DC. I did not feel she had pyelonephritis and thought the UA and culture were contaminated. She has had urine cultures at [facility] in the past that came back with mixed GM + and GM Neg organisms. The abdominal pain had been present for a few months and is not new. There was no cathi-nephric stranding. We have no prior CT scans of the abdomen on this patient and she has had multiple ureteral stents and a pyeloplasty at other institutions. It is possible that the mild hydronephrosis on the left is chronic. She was discharged home on 06/13/18 with a prescription for Duricef 1 GM PO BID for 7 days. she was instructed to follow up with her PCP or her urologist in 5-7 days. Discharge Activity: Return to Normal Activity Call your doctor if you observe: Fever of 101 or Higher, Inability to urinate, - - recurrent nausea and vomiting Home Medications: Medications to take at Discharge Clonazepam [Klonopin] 1 mg PO BID 06/07/17 Albuterol Inhaler [Ventolin Hfa] 1 - 2 puff INHALATION Q4H PRN PRN 10/14/17 [place] Carbonate 900 mg PO QHS 02/02/18 Mirtazapine [Remeron] 15 mg PO QHS 06/12/18 Cefadroxil 1 gm PO BID #14 tab 06/13/18 Following Prescrptions Were Given to Patient: Cefadroxil 1 gm PO BID #14 tab Primary Care Physician: Sonja Farnsworth NP-C [Primary Care Provider] - Please follow up with your Primary Care Physician in: 5-7 days Disposition: Home Minutes spent on discharge:: 30 Patient Condition:: Good Medical Necessity - Tobacco Use Smoking Status: Current every day smoker Meaningful Use Info Meaningful Use Diagnoses (Choose all that apply): None applicable Code Visit OBSV E&M: 50657 Observation care discharge
--- NOTE | 2018-06-13 08:54 | DS.PCM_ITS ---
Discharge Date and Diagnosis - Problem List Patient Problems: Active and Suspected Problems Possible urinary tract infection (Acute) Date of Admission: 06/12/18 Date of Discharge: 06/13/18 - Primary Discharge Diagnosis Active and Suspected Problems Possible urinary tract infection (Acute) - Secondary Discharge Diagnosis Chronic Problems Chronic anxiety (Chronic) Bipolar disorder (Chronic) Super obese (Chronic) Borderline type 2 diabetes mellitus (Chronic) Self-harming behavior (Chronic) Non-suicidal self harm (Chronic) Hospital Course and Treatment Imaging Results: Clinical Impression(s) from Imaging Studies Abdomen/Pelvis CT 06/12/18 18:20 IMPRESSION: Mild left pelvicalyceal fullness/ hydronephrosis. Electronically Signed: Jr Hunter DO at 20:13 EDT Tel [phone], Service support , Chest CTA 06/12/18 18:22 IMPRESSION: Normal CTA chest examination, without a demonstrated pulmonary embolism or arterial dissection. Electronically Signed: Jr Hunter DO at 20:21 EDT Tel [phone], Service support , Laboratory Tests 06/12/18 06/12/18 06/12/18 18:36 18:41 18:41 WBC 10.1 RBC 5.19 Hgb 13.7 Hct 41.7 MCV 80.3 L MCH 26.4 L MCHC 32.9 RDW 15.0 H RDW Differential 44.0 H Plt Count 298 MPV 11.4 Immature Gran % (Auto) 0.200 Neut % (Auto) 74.3 H Lymph % (Auto) 15.9 L Woods % (Auto) 7.3 Eos % (Auto) 2.0 Baso % (Auto) 0.3 Absolute Neuts (auto) 7.5 Absolute Lymphs (auto) 1.60 Total Counted Not Reportable Sodium 143 Potassium 3.8 Chloride 108 H Carbon Dioxide 25.0 Anion Gap 10 BUN 11 Creatinine 0.76 Estim Creat Clear Calc 105.01 Est GFR (MDRD) Af Amer 117 Est GFR (MDRD) Non-Af 97 BUN/Creatinine Ratio 14.4 Glucose 103 Calcium 8.9 Total Bilirubin 0.40 Direct Bilirubin 0.11 AST 13 L ALT 19 Alkaline Phosphatase 115 Total Protein 7.7 Albumin 3.6 Globulin 4.1 Lipase 49 L Serum , Qual Urine Color Kelsie Urine Clarity Cloudy Urine pH 5.0 Ur Specific [place] 1.025 Urine Protein 30 H Urine Glucose (UA) Normal Urine Ketones 5 H Urine Occult Blood 250 H Urine Nitrite Positive H Urine Bilirubin 1 H Urine Urobilinogen 1 H Ur Leukocyte Esterase 500 H Urine RBC > 100 SEEN Urine WBC 25-50 SEEN Ur Squamous Epith Cells 0-5 SEEN Urine Bacteria RARE Urine Mucus RARE 06/12/18 18:41 WBC RBC Hgb Hct MCV MCH MCHC RDW RDW Differential Plt Count MPV Immature Gran % (Auto) Neut % (Auto) Lymph % (Auto) Woods % (Auto) Eos % (Auto) Baso % (Auto) Absolute Neuts (auto) Absolute Lymphs (auto) Total Counted Sodium Potassium Chloride Carbon Dioxide Anion Gap BUN Creatinine Estim Creat Clear Calc Est GFR (MDRD) Af Amer Est GFR (MDRD) Non-Af BUN/Creatinine Ratio Glucose Calcium Total Bilirubin Direct Bilirubin AST ALT Alkaline Phosphatase Total Protein Albumin Globulin Lipase Serum , Qual NEGATIVE Urine Color Urine Clarity Urine pH Ur Specific [place] Urine Protein Urine Glucose (UA) Urine Ketones Urine Occult Blood Urine Nitrite Urine Bilirubin Urine Urobilinogen Ur Leukocyte Esterase Urine RBC Urine WBC Ur Squamous Epith Cells Urine Bacteria Urine Mucus None Operations: None Procedures: None Summary of Care Provided: The patient is a 28-year-old female with a past medical history of anxiety , bipolar disorder, depression with prior suicide attempts, self-inflicted injuries and hx of multiple ureteral stents and pyeloplasty in October 2017 who presented to the ED on 06/12/2018 complaining of nausea and vomiting. She additionally complained of abdominal pain that had persisted for 1-2 months. The pain was located in the left upper quadrant of the abdomen and radiated to the left posterior shoulder. She complained of shortness of breath and a CTA of the chest was obtained and revealed no pulmonary emboli. In the emergency room the UA was positive for leukocytes, RBCs and nitrites and a CT scan showed mild left hydronephrosis with no renal calculi and no cathi-nephritic stranding. White blood cell count was 10.1 with 74% neutrophils. Hemoglobin and platelets were within normal limits. MCV was decreased at 80.3. BMP was unremarkable and the creatinine was 0.76. She was admitted to the hospital and started on ceftriaxone. The urine was obtained by clean catch in a patient with multiple psych disturbances and a BMI in excess of 50. She had no vomiting while in the hospital and received Zofran only once. She was afebrile throughout her stay. She denied dysuria to me on the day of DC. I did not feel she had pyelonephritis and thought the UA and culture were contaminated. She has had urine cultures at [facility] in the past that came back with mixed GM + and GM Neg organisms. The abdominal pain had been present for a few months and is not new. There was no cathi-nephric stranding. We have no prior CT scans of the abdomen on this patient and she has had multiple ureteral stents and a pyeloplasty at other institutions. It is possible that the mild hydronephrosis on the left is chronic. She was discharged home on 06/13/18 with a prescription for Duricef 1 GM PO BID for 7 days. she was instructed to follow up with her PCP or her urologist in 5-7 days. Discharge Activity: Return to Normal Activity Call your doctor if you observe: Fever of 101 or Higher, Inability to urinate, - - recurrent nausea and vomiting Home Medications: Medications to take at Discharge Clonazepam [Klonopin] 1 mg PO BID 06/07/17 Albuterol Inhaler [Ventolin Hfa] 1 - 2 puff INHALATION Q4H PRN PRN 10/14/17 [place] Carbonate 900 mg PO QHS 02/02/18 Mirtazapine [Remeron] 15 mg PO QHS 06/12/18 Cefadroxil 1 gm PO BID #14 tab 06/13/18 Following Prescrptions Were Given to Patient: Cefadroxil 1 gm PO BID #14 tab Primary Care Physician: Sonja Farnsworth NP-C [Primary Care Provider] - Please follow up with your Primary Care Physician in: 5-7 days Disposition: Home Minutes spent on discharge:: 30 Patient Condition:: Good Medical Necessity - Tobacco Use Smoking Status: Current every day smoker Meaningful Use Info Meaningful Use Diagnoses (Choose all that apply): None applicable Code Visit OBSV E&M: 92767 Observation care discharge
[2018-06-13 09:21] VITALS: BP 128/90; PULSE 70; RESP 18; TEMP 36.6; O2SAT 99
== END 2018-06-13 09:36 | disposition home or self-care (01) ==
LOC: ED 18:30 → MS2 21:48
PROVIDERS: Admitting Provider Family Medicine; Emergency Provider Emergency Medicine; Family Provider Nurse Practitioner Family; PCP Nurse Practitioner Family; Visit Provider Internal Medicine
DX: N13.30 Unspecified hydronephrosis (principal); R11.2 Nausea with vomiting, unspecified; F31.9 Bipolar disorder, unspecified; F41.9 Anxiety disorder, unspecified; F17.200 Nicotine dependence, unspecified, uncomplicated; Z79.899 Other long term (current) drug therapy; R73.03 Prediabetes; E66.01 Morbid (severe) obesity due to excess calories; Z68.43 Body mass index [BMI] 50.0-59.9, adult; Z71.3 Dietary counseling and surveillance
CPT/HCPCS: 71275; 74177; 80048; 80076; 81001; 83690; 84703; 85025; 93005; 96361; 96365; 96375; 96376; 99218; 99282; J7030; Q9967; A4216; G0378; J2405

== ENCOUNTER 2018-06-21 23:30 | Emergency (ER) | payer MEDICARE, MEDICAID, SELFPAY ==
[2018-06-21 23:32] VITALS: BP 140/86; PULSE 97; RESP 18; TEMP 36.7; O2SAT 97; BMI 56.3
[2018-06-21 23:56] LABS: Bacteria 0 SEEN /hpf (None Seen); Mucous, Urine 0 SEEN /hpf (<or=2+); Squamous Epithelial Cells - UA 0 SEEN /hpf (5-10)
[2018-06-21 23:58] LABS: Absolute Lymphocyte Count 2.29 X10^3/ul (0.83-4.51); Absolute Neutrophil Count 6.5 X10^3/uL (2.0-7.7); Basophil# 0.02 X10^3/uL; Basophil% 0.2 % (0-1); Color, Urine Yellow (Yellow); Eosinophil# 0.28 X10^3/uL; Eosinophils% 2.8 % (0-5); Glucose, Dipstick Normal (Normal); Hematocrit 42.1 % (37-47); Hemoglobin 13.9 g/dl (12.0-15.0); Ketone-Dipstick Negative (Negative); Leukocyte Esterase-Dipstick 500 /ul (Negative); Lymphocyte # 2.29 X10^3/ul (4.0); Lymphocyte % 23.1 % (19-41); Mean Corpuscular Hgb 26.4 pg (27.0-32.0); Mean Platelet Vol. 11.5 fl (6.2-12.0); Monocyte# 0.79 X10^3/uL; Neutrophil # 6.49 X10^3/uL (2.7-7.7); Neutrophil % 65.6 % (47-70); Nitrite-Dipstick Negative (Negative); Occult Blood-Urine 10 /ul (Negative); POSITIVE COUNT NO; POSITIVE DIFFERENTIAL NO; POSITIVE MORPHOLOGY NO; Platelet Count 260 K/mm3 (150-450); Protein-Dipstick 15 mg/dl (Negative); Red Blood Count 5.26 M/mm3 (4.2-5.4); Urine Bilirubin Dipstick Negative (Negative); Urine Clarity Sl. Cloudy (Clear); Urine Urobilinogen 1 mg/dl (Normal); White Blood Count 9.9 K/mm3 (4.4-11.0)
[2018-06-22] LABS: Internal QC Validated? YES +Cl - CLEAR BKGD; Pregnancy, Urine Negative Negative
[2018-06-22 00:06] LABS: Red Blood Cells-Urine 0-5 SEEN /hpf (0-5); Trichomonas 0-5 SEEN /hpf (None Seen); White Blood Cells 10-25 SEEN /hpf (0-5)
[2018-06-22 00:09] LABS: Anion Gap 8 (5-15); BUN 15 mg/dL (7-18); BUN/Creat Ratio 19.5 RATIO (10-20); Chloride 108 mmol/L (98-107); Creatinine, Serum 0.77 mg/dL (0.55-1.02); EST Glomerular Filtration Rate 96 mL/min (>60); Est Glom Filt Rate - Afr Amer 117 mL/min (>60); Estimated Creatinine Clearance 107.67 ml/min; Glucose 98 mg/dL (74-106); Potassium 3.7 mmol/L (3.5-5.1); Sodium Level 140 mmol/L (136-145)
[2018-06-22] MEDS: Morphine 4 MG/ML Syringe IV (00:31)
[2018-06-22] MEDS: Ondansetron 4 MG/2 ML Vial IV (00:31)
[2018-06-22 02:29] LABS: AST(SGOT) 16 U/L (15-37); Alanine Aminotransfer ALT/SGPT 16 U/L (13-56); Albumin, Serum 3.5 g/dL (3.2-5.0); Alkaline Phosphatase 102 U/L (45-117); Bilirubin, Direct 0.09 mg/dL (0.00-0.30); Lipase 67 U/L (73-393); Protein, Total 7.5 g/dL (6.4-8.2)
--- NOTE | 2018-06-22 02:36 | ED.DCSUM_ITS ---
"- ER Visit Summary Date of Service: 06/22/18 Chief Complaint: Abdominal pain History of Present Illness: The patient is a 28 F presenting with abdominal pain which has been ongoing for 1-2 months. She was admitted to the hospital from June 12- for similar complaints. At that time she was treated with antibiotics for a urine infection. This was presumed contaminated while she was in the hospital. She was sent home on antibiotics and finished this course 2 days ago. She complains of left upper and right upper quadrant pain. She also has right flank pain. She has nausea with no vomiting. Denies diarrhea or constipation. Denies urinary complaints. Denies fever. Physical Examination: Vitals are stable. Patient is afebrile. Alert no acute distress. HEENT exam is unremarkable. Neck is supple. Lungs are clear and equal bilaterally. Heart is regular rate and rhythm. Abdomen is soft obese nontender nondistended. No guarding or rebound Back: Nontender Extremities are unremarkable. Skin is warm and dry. No focal neurologic deficit. Remainder of exam is unremarkable. Emergency Department Course and Treatment: Patient given morphine, Zofran. She is resting comfortably on reevaluation. CBC, chemistries unremarkable. Liver lipase are normal. Urinalysis shows positive leukocytes, 10-25 white blood cells, hCG negative. Urine culture was sent. Patient has no urinary complaints. She just finished a course of antibiotics and states that she has been on multiple antibiotics over the past several months. Will await urine culture results. She will follow-up with her primary care physician. She is given a prescription for Bentyl. She is advised return to ED for worsening complaints. Disposition: Discharge home Impression: Abdominal pain This note was generated with [id number] dictation software. It may contain incorrect words, spelling, and punctuation that were not noted in review of the chart prior to signing ED Disposition - Plan for ED Patient: Chief Complaint: Flank Pain Referrals: Marco Gibbs [Primary Care Provider] -"
--- NOTE | 2018-06-22 02:37 | ED.DEP ---
ED Disposition - Plan for ED Patient: Chief Complaint: Flank Pain Instructions: ED Abdominal Pain Unkn Cause Prescriptions: Dicyclomine HCl [Bentyl] 20 mg PO TIDAC #20 capsule Referrals: Sonja Farnsworth NP-C [NON-STAFF] - Manoj Bradley MD [NON-STAFF] -
[2018-06-22 02:45] VITALS: PULSE 68; RESP 16; O2SAT 98
== END 2018-06-22 02:46 | disposition home or self-care (01) ==
LOC: ED 23:56
PROVIDERS: Emergency Provider Emergency Medicine; Family Provider Family Medicine; PCP Family Medicine
DX: R10.12 Left upper quadrant pain (principal); R10.11 Right upper quadrant pain; E31.9 Polyglandular dysfunction, unspecified; Z72.0 Tobacco use; Z79.51 Long term (current) use of inhaled steroids; Z79.899 Other long term (current) drug therapy
CPT/HCPCS: 80048; 80076; 81001; 81025; 83690; 85025; 87086; 87088; 96374; 96375; 99285; A4216; J2405

== ENCOUNTER 2018-07-30 23:21 | Emergency (ER) | payer MEDICARE, MEDICAID, SELFPAY ==
[2018-07-30 23:22] VITALS: BP 169/112; PULSE 90; RESP 15; TEMP 36.9; BMI 54.7
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
== END 2018-07-31 01:23 | disposition home or self-care (01) ==
LOC: ED 07-31 01:07
PROVIDERS: Emergency Provider Emergency Medicine; Family Provider Family Medicine; PCP Family Medicine
DX: G47.00 Insomnia, unspecified (principal); R44.1 Visual hallucinations; E66.9 Obesity, unspecified; F31.9 Bipolar disorder, unspecified; Z79.52 Long term (current) use of systemic steroids; Z79.899 Other long term (current) drug therapy
CPT/HCPCS: 99282

== ENCOUNTER 2018-08-27 22:56 | Emergency (ER) | payer MEDICARE, MEDICAID, SELFPAY ==
[2018-08-27 22:58] VITALS: BP 124/92; PULSE 105; RESP 20; TEMP 36.9; O2SAT 98; BMI 57.2
[2018-08-28] VITALS (14 sets, daily range): BP systolic 107–128; BP diastolic 69–72; PULSE 68–92; RESP 16–18; O2SAT 96–98
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
[2018-08-28 00:35] LABS: Absolute Lymphocyte Count 1.89 X10^3/ul (0.83-4.51); Absolute Neutrophil Count 5.1 X10^3/uL (2.0-7.7); Basophil# 0.01 X10^3/uL; Basophil% 0.1 % (0-1); Eosinophil# 0.14 X10^3/uL; Eosinophils% 1.9 % (0-5); Hematocrit 43.5 % (37-47); Lymphocyte # 1.89 X10^3/ul (4.0); Lymphocyte % 25.1 % (19-41); Mean Corp Hgb Conc 32.2 g/gl (32-36); Mean Corpuscular Hgb 26.4 pg (27.0-32.0); Mean Corpuscular Volume 82.1 fL (81-99); Mean Platelet Vol. 10.9 fl (6.2-12.0); Monocyte# 0.35 X10^3/uL; Monocyte% 4.6 % (0-10); Neutrophil # 5.14 X10^3/uL (2.7-7.7); Neutrophil % 68.2 % (47-70); Platelet Count 254 K/mm3 (150-450); RBC Distribution Width CV 16.5 % (11.6-14.6); White Blood Count 7.5 K/mm3 (4.4-11.0)
[2018-08-28 00:36] LABS: POSITIVE COUNT NO; POSITIVE DIFFERENTIAL NO; POSITIVE MORPHOLOGY NO
[2018-08-28 01:03] LABS: ALB/GLOB Ratio 0.9 RATIO (0.9-2.4); AST(SGOT) 11 U/L (15-37); Alanine Aminotransfer ALT/SGPT 13 U/L (13-56); Albumin, Serum 3.3 g/dL (3.2-5.0); Alkaline Phosphatase 102 U/L (45-117); Anion Gap 10 (5-15); BUN 11 mg/dL (7-18); BUN/Creat Ratio 18.9 RATIO (10-20); Calcium,Total 8.4 mg/dL (8.5-10.1); Chloride 110 mmol/L (98-107); Creatinine, Serum 0.58 mg/dL (0.55-1.02); EST Glomerular Filtration Rate 132 mL/min (>60); Est Glom Filt Rate - Afr Amer 160 mL/min (>60); Globulin 3.6 g/dL (2.2-4.2); Glucose 103 mg/dL (74-106); Potassium 3.6 mmol/L (3.5-5.1); Protein, Total 6.9 g/dL (6.4-8.2); Sodium Level 144 mmol/L (136-145)
[2018-08-28 01:08] LABS: Amphetamine Urine VISTA NEGATIVE (<1000 ng/mL); Barbiturate Urine VISTA NEGATIVE (< 200 ng/mL); Benzodiazepine Urine VISTA NEGATIVE (< 200 ng/mL); Cocaine Urine VISTA NEGATIVE (< 300 ng/mL); Ecstacy Urine VISTA NEGATIVE (< 500 ng/mL); Methadone Urine VISTA NEGATIVE (< 300 ng/mL); PCP Urine VISTA NEGATIVE (< 25 ng/mL); THC Urine VISTA POSITIVE (< 50 ng/mL); Vista UDS pH Range 6
[2018-08-28 01:08] LABS: Lithium < 0.20 mmol/L (0.60-1.20)
[2018-08-28 01:11] LABS: Pregnancy, Serum, hCG Quali. NEGATIVE Negative (0-9 Nonpreg)
--- NOTE | 2018-08-28 03:53 | NURSING ---
THIS NURSE PLAYED TWO GAMES OF RUMMY WITH THE PATIENT AT THE BEDSIDE. PATIENT IS VERY PLEASANT AND COOPERATIVE CURRENTLY. [facility] THE CRISIS COUNSELOR IS TRYING TO PLACE HER CURRENTLY.
--- NOTE | 2018-08-28 04:19 | NURSING ---
[facility]. CANNOT TAKE PATIENT DUE TO ACUITY
--- NOTE | 2018-08-28 06:28 | ED.RN ---
PATIENT HAS BEEN COOPERATING ALL EVENING. [facility] IS STILL TRYING TO GET HER A BED SOME WHERE. PATIENT HAS NOT BEEN TAKING HER MEDICATIONS. [facility] SAID THAT THEY COULD NOT TAKE HER D/T HIGH ACUITY
--- NOTE | 2018-08-28 07:20 | NURSING ---
[facility], CRISIS, CALLED. HE IS GOING TO HAVE NEXT SHIFT PERSON TRY TO PLACE PATIENT. SOME PLACES ARE EXPECTING DISCHARGES.
--- NOTE | 2018-08-28 12:03 | ED.RN ---
CONCEPCION FROM CRISIS CALLED STATING [facility] WANTS AN UPDATED ALCOHOL LEVEL DRAWN AND FAXED TO THEM WHEN RESULTED. LET NURSE KNOW.
--- NOTE | 2018-08-28 12:21 | ED.RN ---
CONCEPCION FROM CRISIS CALLED STATING THAT [facility] IS ACCEPTING THE PATIENT AND THEY WILL CALL US WHEN THEY HAVE A BED FOR THE PATIENT.
[2018-08-28] MEDS: clonazePAM 1 MG Tablet PO (12:52)
[2018-08-28 12:57] LABS: Alcohol, Blood (Medical)-Serum < 3.0 mg/dL
--- NOTE | 2018-08-28 14:12 | NURSING ---
[facility]
== END 2018-08-28 16:14 ==
LOC: ED 08-28 00:33
PROVIDERS: Emergency Medicine; Emergency Provider Emergency Medicine; Family Provider Nurse Practitioner Family; PCP Nurse Practitioner Family
DX: F31.9 Bipolar disorder, unspecified (principal); F10.229 Alcohol dependence with intoxication, unspecified; Y90.5 Blood alcohol level of 100-119 mg/100 ml; F12.90 Cannabis use, unspecified, uncomplicated; R45.851 Suicidal ideations; Z91.5 Personal history of self-harm; E66.9 Obesity, unspecified; Z79.899 Other long term (current) drug therapy; Z72.0 Tobacco use
CPT/HCPCS: 36415; 80053; 80178; 80307; 80320; 84703; 85025; 99284; G0480

== ENCOUNTER 2018-09-14 14:45 | Emergency (ER) | payer MEDICARE, MEDICAID, SELFPAY ==
[2018-09-14 14:46] VITALS: BP 155/111; PULSE 113; RESP 18; TEMP 36.6; O2SAT 100; BMI 58.1
[2018-09-14 15:29] LABS: Bacteria 0 SEEN /hpf (None Seen); Mucous, Urine 0 SEEN /hpf (<or=2+); Squamous Epithelial Cells - UA 0 SEEN /hpf (5-10); White Blood Cells 0 SEEN /hpf (0-5)
[2018-09-14 15:46] LABS: Color, Urine Red (Yellow); Glucose, Dipstick Normal (Normal); Ketone-Dipstick 5 mg/dl (Negative); Leukocyte Esterase-Dipstick 500 /ul (Negative); Nitrite-Dipstick Negative (Negative); Occult Blood-Urine 250 /ul (Negative); Protein-Dipstick 100 mg/dl (Negative); Specific Gravity, Urine 1.015 (1.002-1.030); Urine Bilirubin Dipstick Negative (Negative); Urine Clarity Cloudy (Clear); Urine Urobilinogen Normal (Normal); Urine pH 6.5 (5.0 - 8.0)
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
[2018-09-14 15:51] VITALS: BP 155/90; PULSE 98; RESP 14; O2SAT 98
[2018-09-14 15:55] LABS: Internal QC Validated? YES +Cl - CLEAR BKGD; Pregnancy, Urine Negative Negative
[2018-09-14 16:03] LABS: Red Blood Cells-Urine > 100 SEEN /hpf (0-5)
[2018-09-14 16:57] VITALS: BP 135/80; PULSE 90; RESP 14; O2SAT 98
== END 2018-09-14 17:08 | disposition home or self-care (01) ==
PROVIDERS: Emergency Provider Emergency Medicine; Family Provider Nurse Practitioner Family; PCP Nurse Practitioner Family
DX: S31.41XA Laceration without foreign body of vagina and vulva, initial encounter (principal); T74.21XA Adult sexual abuse, confirmed, initial encounter; E66.9 Obesity, unspecified; Z72.0 Tobacco use; Z79.51 Long term (current) use of inhaled steroids; Z79.899 Other long term (current) drug therapy; Y93.89 Activity, other specified; Y92.89 Other specified places as the place of occurrence of the external cause; Y99.8 Other external cause status
CPT/HCPCS: 81001; 81025; 99282

== ENCOUNTER 2019-02-23 15:29 | Emergency (ER) | payer MEDICARE, MEDICAID, SELFPAY ==
[2019-02-23 15:29] VITALS: BMI 61.2
[2019-02-23 15:36] VITALS: BP 161/95; PULSE 85; RESP 17; TEMP 36.8; O2SAT 98; BMI 55.9
[2019-02-23 15:59] LABS: Mucous, Urine 0 SEEN /hpf (<or=2+); White Blood Cells 0 SEEN /hpf (0-5)
[2019-02-23 16:18] LABS: Color, Urine Yellow (Yellow); Glucose, Dipstick Normal (Normal); Ketone-Dipstick Negative (Negative); Leukocyte Esterase-Dipstick Negative /ul (Negative); Nitrite-Dipstick Negative (Negative); Occult Blood-Urine 10 /ul (Negative); Protein-Dipstick Negative (Negative); Specific Gravity, Urine 1.015 (1.002-1.030); Urine Bilirubin Dipstick Negative (Negative); Urine Clarity Clear (Clear); Urine Urobilinogen Normal (Normal)
[2019-02-23 16:49] LABS: Bacteria RARE /hpf (None Seen); Red Blood Cells-Urine 0-5 SEEN /hpf (0-5); Squamous Epithelial Cells - UA 0-5 SEEN /hpf (5-10)
--- NOTE | 2019-02-23 17:16 | ED.DCSUM_ITS ---
- ER Visit Summary Date of Service: 02/23/19 Chief Complaint: Left flank pain History of Present Illness: The patient is a 29 F. 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 This has been treated in the past with ureteral stents. Today she knows she was having left flank pain. Associated nausea. No dysuria or hematuria. No fever. She states she has 2 functioning kidneys. Physical Examination: Young female in a hallway chair. Vital signs are stable afebrile. H EENT exam unremarkable. Neck nontender no lymphadenopathy. Lungs clear to auscultation bilaterally. Heart regular rate and rhythm no murmur. Abdomen is obese but soft. Nontender nondistended organomegaly or masses. Normal bowel sounds no peritoneal signs. Extremities moves all 4. Neurovascular intact. Back nontender no CVA tenderness. Neurologically she is awake alert with no focal motor deficits. Test Results: Nurses placed triage orders. Urinalysis showed no signs of infection except for rare bacteria. No signs of infection or blood. CBC normal white count 8. Hemoglobin 14. Chemistries normal normal gap and creatinine 0.7. Serum test negative. Multiple repeat exams patient is resting comfortably. Emergency Department Course and Treatment: Patient clinically looks well. Treatment Plan: 1 [place] here for pain. Discharged to home. Follow-up with her primary care physician or her urologist at this time I do not feel she needs any imaging. Tylenol and Motrin at home for pain. Disposition: Discharge Impression: Flank pain uncertain etiology History of bipolar This note was generated with [employer] dictation software. It may contain incorrect words, spelling, and punctuation that were not noted in review of the chart prior to signing ED Disposition - Plan for ED Patient: Referrals: Sonja Farnsworth, NICANOR-C [Primary Care Provider] -
[2019-02-23 18:13] VITALS: BP 160/93; PULSE 83; RESP 18; TEMP 36.8; O2SAT 95
[2019-02-23 18:18] LABS: Absolute Lymphocyte Count 1.62 X10^3/ul (0.83-4.51); Basophil# 0.01 X10^3/uL; Basophil% 0.1 % (0-1); Eosinophil# 0.15 X10^3/uL; Eosinophils% 1.8 % (0-5); Hematocrit 43.9 % (37-47); Hemoglobin 14.5 g/dl (12.0-15.0); Lymphocyte # 1.62 X10^3/ul (4.0); Mean Corpuscular Hgb 27.1 pg (27.0-32.0); Mean Corpuscular Volume 82.1 fL (81-99); Mean Platelet Vol. 10.4 fl (6.2-12.0); Monocyte# 0.74 X10^3/uL; Monocyte% 8.7 % (0-10); Neutrophil # 5.99 X10^3/uL (2.7-7.7); Neutrophil % 70.2 % (47-70); Platelet Count 294 K/mm3 (150-450); RBC Distribution Width CV 14.2 % (11.6-14.6); RBC Distribution Width SD 41.9 fl (35.1-43.9); Red Blood Count 5.35 M/mm3 (4.2-5.4); White Blood Count 8.5 K/mm3 (4.4-11.0)
[2019-02-23 18:20] LABS: POSITIVE COUNT NO; POSITIVE DIFFERENTIAL NO; POSITIVE MORPHOLOGY NO
--- NOTE | 2019-02-23 18:33 | NURSING ---
WATER GIVEN PER DR ROSALIA PALOMO
[2019-02-23 18:38] LABS: Anion Gap 8 (5-15); BUN 11 mg/dL (7-18); BUN/Creat Ratio 13.9 RATIO (10-20); Chloride 107 mmol/L (98-107); Creatinine, Serum 0.79 mg/dL (0.55-1.02); EST Glomerular Filtration Rate 92 mL/min (>60); Est Glom Filt Rate - Afr Amer 112 mL/min (>60); Estimated Creatinine Clearance 100.14 ml/min; Glucose 115 mg/dL (74-106); Potassium 3.8 mmol/L (3.5-5.1); Sodium Level 141 mmol/L (136-145)
[2019-02-23 19:00] VITALS: BP 126/76; PULSE 71; RESP 18; TEMP 36.8; O2SAT 98
[2019-02-23 19:31] LABS: Pregnancy, Serum, hCG Quali. NEGATIVE Negative (0-9 Nonpreg)
--- NOTE | 2019-02-23 19:55 | ED.DEP ---
ED Disposition - Plan for ED Patient: Disposition: Home or Assisted Living Instructions: ED Abdominal Pain Unkn Cause Referrals: Sonja Farnsworth, NICANOR-C [Primary Care Provider] - As soon as possible Additional Instructions: Tylenol and Motrin for pain. Follow-up with your urologist if this pain is not improving or your primary care provider. All your labs and tests today were normal.
[2019-02-23] MEDS: HYDROcodone Bitartrate/Apap 5/325 Tablet PO (20:04)
[2019-02-23 20:07] VITALS: BP 126/76; PULSE 69; RESP 16; O2SAT 98
== END 2019-02-23 20:07 | disposition home or self-care (01) ==
PROVIDERS: Emergency Provider Emergency Medicine; Family Provider Nurse Practitioner Family; PCP Nurse Practitioner Family
DX: R10.9 Unspecified abdominal pain (principal); F31.9 Bipolar disorder, unspecified; I10 Essential (primary) hypertension; Z72.0 Tobacco use; Z79.899 Other long term (current) drug therapy
CPT/HCPCS: 80048; 81001; 84703; 85025; 99284; A4216

== ENCOUNTER 2024-05-12 17:58 | Emergency (ER) | payer MEDICARE, MEDICAID, SELFPAY ==
[2024-05-12 17:58] VITALS: BP 156/102; PULSE 91; RESP 17; TEMP 36.1; O2SAT 98; BMI 57.7
--- NOTE | 2024-05-12 18:13 | EX.ED.DYSGE1 ---
HPI <DIXIE Rodriguez - Last Filed: 05/12/24 22:01> History of Present Illness Chief Complaint: Abd Pain Narrative Narrative: 34-year-old female states she has had pain that feels deep to her scar from September 2023 for over a month. She also has generalized abdominal crampy pain with occasional nausea but no vomiting. She is tolerating p.o. intake and has no pain with eating. She reports normal urination and 1-2 normal bowel movements a day without melena or hematochezia. She saw her primary care doctor who prescribed Zofran which did not help the nausea. She saw an [employer] CLE[employer]ER and states they thought her healed well and did not have any recommendations. Over the last few days she has felt lightheaded with standing or moving and because of this combined with the ongoing abdominal pain she decided to seek evaluation. She has also had a cholecystectomy and a left pyeloplasty/ureteral repair from scar tissue. [facility] <DIXIE Rodriguez - Last Filed: 05/12/24 22:01> [facility] Medical History (Updated 05/12/24 @ 20:14 by DIXIE Rodriguez) Preeclampsia History of hypertension Depression History of diabetes mellitus Home Medications ?Medication ?Instructions ?Recorded ?Last Taken ?Type albuterol sulfate 90 mcg/actuation 1 - 2 puff inhalation Q4H PRN PRN 10/14/17 06/11/18 History aerosol inhaler (Ventolin HFA) Sob &/Or Wheezing amoxicillin 875 mg-potassium 875 mg PO Q12H #20 tabs 09/14/18 Unknown Rx clavulanate 125 mg tablet cariprazine 1.5 mg capsule 1.5 mg PO DAILY 02/23/19 Unknown History (Vraylar) chlorpromazine 25 mg tablet 25 mg PO TID 02/23/19 Unknown History gabapentin 300 mg capsule 300 mg PO TIDCM 02/23/19 Unknown History naltrexone 50 mg tablet 50 mg PO DAILY 02/23/19 Unknown History zohreymy-vxyhgvqfw-kheafsjyj 3.5 4 drp TID 02/23/19 Unknown History mg/mL-10,000 unit/mL-1 % ear solution promethazine 25 mg tablet 25 mg PO Q6H PRN nausea and 05/12/24 Unknown Rx vomiting 3 days #12 tabs Allergy/AdvReac Type Severity Reaction Status Date / Time adhesive tape (tape) Allergy Mild Rash Verified 05/12/24 18:01 metformin Allergy Mild Abd Verified 05/12/24 18:01 cramps/diarrhea clindamycin AdvReac Upset Verified 05/12/24 18:00 Stomach Social History Smoking Status: Unknown if ever smoked ROS <DIXIE Rodriguez - Last Filed: 05/12/24 22:01> ROS ED ROS Narrative Constitutional: Negative for fever, chills, malaise. CVS: Negative for palpitations, chest pain, syncope. Respiratory: Negative for shortness of breath, cough. GI: Positive for abdominal pain, nausea. Negative for vomiting, diarrhea, constipation, melena, hematochezia. : Negative for dysuria, hematuria or frequency. EXAM <DIXIE Rodriguez - Last Filed: 05/12/24 22:01> Physical Exam Narrative Exam Narrative: CONST: Patient sitting in no acute distress. EYES: Normal inspection. NECK: Normal inspection. RESP: No respiratory distress, CTAB. CVS: Regular rate and rhythm, no murmur, no gallop. ABD: Obese abdomen soft and nontender, no guarding or rebound, nondistended. No tenderness over the healed scar, no palpable hernias or abnormality. SKIN: Color normal, no rash, warm, dry, intact. EXTREMITIES: Normal appearance, no pedal edema. NEURO: Alert and answering questions appropriately. PSYCH: Normal affect. Const Vital Signs: 05/12/24 17:58 05/12/24 19:58 05/12/24 20:27 Temperature 97 F L 97.1 F L Temperature Source Temporal Pulse Rate 91 69 97 Respiratory Rate 17 17 18 Blood Pressure 156/102 H 120/89 H 128/89 H Blood Pressure Mean 120 99 102 Pulse Ox 98 99 99 Oxygen Delivery Method Room Air Room Air <Dr. Joe Car DO - Last Filed: 05/12/24 23:32> Physical Exam Const Vital Signs: 05/12/24 17:58 05/12/24 19:58 05/12/24 20:27 Temperature 97 F L 97.1 F L Temperature Source Temporal Pulse Rate 91 69 97 Respiratory Rate 17 17 18 Blood Pressure 156/102 H 120/89 H 128/89 H Blood Pressure Mean 120 99 102 Pulse Ox 98 99 99 Oxygen Delivery Method Room Air Room Air [facility] <DIXIE Rodriguez - Last Filed: 05/12/24 22:01> [facility] Narrative Medical decision making narrative: Patient has a month of nausea, generalized abdominal pain, pain over her scar area. She appears well and nontoxic. Vital signs stable. Abdomen soft with generalized tenderness. section scar is completely healed with no sign of infection or hernia. Screening labs overall unremarkable. negative. UA negative. With the chronicity of her symptoms, labs and serial benign exams I do not think a CT is indicated. She states p.o. Zofran does not help her nausea so I prescribed Phenergan. I recommended follow-up with her primary care doctor and she was discharged in stable condition. Lab Data Attestation: I reviewed the patient's lab results. Labs: Laboratory Results - last 24 hr 05/12/24 05/12/24 18:15 19:27 WBC 10.8 RBC 5.41 H Hgb 13.5 Hct 42.6 MCV 78.7 L MCH 25.0 L MCHC 31.7 L RDW Std Deviation 42.7 RDW Coeff of Ade 15.1 H Plt Count 283 MPV 10.7 Immature Gran % (Auto) 0.200 Neut % (Auto) 72.3 H Lymph % (Auto) 18.8 L [place] % (Auto) 6.3 Eos % (Auto) 2.0 Baso % (Auto) 0.4 Absolute Neuts (auto) 7.8 H Absolute Lymphs (auto) 2.03 Nucleated RBC % 0 Sodium 138 Potassium 3.5 Chloride 107 Carbon Dioxide 22.0 Anion Gap 9 BUN 23 H Creatinine 0.78 Estim Creat Clear Calc 164.34 Est GFR (MDRD) Af Amer 109 Est GFR (MDRD) Non-Af 90 BUN/Creatinine Ratio 29.3 H Glucose 108 H Calcium 9.1 Total Bilirubin 0.40 AST 10 L ALT 16 Alkaline Phosphatase 102 Total Protein 7.7 Albumin 3.9 Globulin 3.8 Albumin/Globulin Ratio 1.0 Serum , Qual NEGATIVE Urine Color Yellow Urine Clarity Clear Urine pH 7.0 Ur Specific [place] 1.015 Urine Protein Negative Urine Glucose (UA) Normal Urine Ketones Negative Urine Occult Blood 10 H Urine Nitrite Negative Urine Bilirubin Negative Urine Urobilinogen Normal Ur Leukocyte Esterase Negative Urine RBC 0 SEEN Urine WBC 0 SEEN Ur Squamous Epith Cells 0 SEEN Urine Bacteria 0 SEEN Urine Mucus 0 SEEN <Dr. Joe Car, DO - Last Filed: 05/12/24 23:32> [facility] Lab Data Labs: Laboratory Results - last 24 hr 05/12/24 05/12/24 18:15 19:27 WBC 10.8 RBC 5.41 H Hgb 13.5 Hct 42.6 MCV 78.7 L MCH 25.0 L MCHC 31.7 L RDW Std Deviation 42.7 RDW Coeff of Ade 15.1 H Plt Count 283 MPV 10.7 Immature Gran % (Auto) 0.200 Neut % (Auto) 72.3 H Lymph % (Auto) 18.8 L [place] % (Auto) 6.3 Eos % (Auto) 2.0 Baso % (Auto) 0.4 Absolute Neuts (auto) 7.8 H Absolute Lymphs (auto) 2.03 Nucleated RBC % 0 Sodium 138 Potassium 3.5 Chloride 107 Carbon Dioxide 22.0 Anion Gap 9 BUN 23 H Creatinine 0.78 Estim Creat Clear Calc 164.34 Est GFR (MDRD) Af Amer 109 Est GFR (MDRD) Non-Af 90 BUN/Creatinine Ratio 29.3 H Glucose 108 H Calcium 9.1 Total Bilirubin 0.40 AST 10 L ALT 16 Alkaline Phosphatase 102 Total Protein 7.7 Albumin 3.9 Globulin 3.8 Albumin/Globulin Ratio 1.0 Serum , Qual NEGATIVE Urine Color Yellow Urine Clarity Clear Urine pH 7.0 Ur Specific [place] 1.015 Urine Protein Negative Urine Glucose (UA) Normal Urine Ketones Negative Urine Occult Blood 10 H Urine Nitrite Negative Urine Bilirubin Negative Urine Urobilinogen Normal Ur Leukocyte Esterase Negative Urine RBC 0 SEEN Urine WBC 0 SEEN Ur Squamous Epith Cells 0 SEEN Urine Bacteria 0 SEEN Urine Mucus 0 SEEN Treatment and Re-Evaluation :: I have personally performed a face to face assessment of the patient and have reviewed the ECTOR Note. I performed a substantive portion of the visit including all aspects of the following. My tinajero findings include: History: Patient presents with lower abdominal pain and nausea that has been constant for the past month. Patient states she has pain over her scar area. Patient states she had her several months ago. Patient admits to some nausea but denies any vomiting. Patient denies any diarrhea, melena, or hematochezia. Patient denies any dysuria or hematuria. Patient denies any abnormal vaginal bleeding or discharge. Patient states nothing makes her pain better and nothing makes it worse. Exam: Vital signs are stable. Patient is afebrile. Patient is in no acute distress. Oral mucosa is pink and moist. Neck is supple. Trachea is midline. There is no JVD. Heart was regular rate and rhythm. Lungs are clear and equal bilaterally. Abdomen is soft. Bowel sounds are normal. There is some mild lower abdominal tenderness. There is no rebound or guarding noted. Cranial nerves II through XII are intact. There are no focal motor or sensory deficits noted. Medical Decision Making: Differential diagnosis includes postoperative pain, urinary tract infection, ectopic , gastroenteritis, and electrolyte abnormality. CBC will be obtained to assess for leukocytosis and anemia. Comprehensive metabolic profile will be obtained to assess for hepatic function, renal function, and electrolyte abnormality. Serum hCG will be obtained to assess for . Urinalysis will be obtained to assess for urinary tract infection and hematuria. Patient was given Toradol and Zofran here. CBC was reviewed and was essentially within normal limits. Comprehensive metabolic profile was reviewed and was essentially within normal limits. Serum hCG was reviewed and was negative. Urinalysis was reviewed. There is no evidence of urinary tract infection or hematuria. Patient was advised of her findings. Patient was instructed to follow-up with her primary care physician in 5 to 7 days. Patient understood and was agreeable with the plan. All questions were answered. Discharge Plan Triage Chief Complaint: Abd Pain ED Midlevel Provider: Jillian Ferguson ED Provider: Joe Car Dx/Rx/DC Orders Clinical Impression: Abdominal pain, Nausea Instructions: Abdominal Pain Prescriptions: New promethazine 25 mg tablet 25 mg PO Q6H PRN (Reason: nausea and vomiting) 3 Days Qty: 12 0RF No Action albuterol sulfate [Ventolin HFA] 1 INHALER inhaler 1 - 2 puff inhalation Q4H PRN PRN (Reason: Sob &/Or Wheezing) amoxicillin-pot clavulanate 875 MG tablet 875 mg PO Q12H Qty: 20 0RF [id number] 0 solution 4 drp Left Ear TID naltrexone 50 MG tablet 50 mg PO DAILY chlorpromazine 25 tablet 25 mg PO TID gabapentin 300 MG capsule 300 mg PO TIDCM cariprazine [Vraylar] 1.5 MG capsule 1.5 mg PO DAILY Primary Care Provider: Sonja Farnsworth NP Referrals: Sonja Farnsworth NP, [employer] [employer] COORDINATOR-C [Primary Care Provider] - Activity Restrictions/Additional Instructions: Screening labs look normal. I recommend follow-up with your primary care doctor for further evaluation of your ongoing nausea and abdominal issues. Print Language: Burmese Disposition Disposition: Home, Self Care Discharge Date/Time: 05/12/24 20:29
[2024-05-12 18:25] LABS: Absolute Lymphocyte Count 2.03 X10^3/uL (0.83-4.51); Absolute Neutrophil Count 7.8 X10^3/uL (2.0-7.7); Basophil# 0.04 X10^3/uL; Basophil% 0.4 % (0-1); Eosinophil# 0.22 X10^3/uL; Hematocrit 42.6 % (37-47); Hemoglobin 13.5 g/dL (12.0-15.0); Lymphocyte # 2.03 X10^3/ul (0.83-4.51); Lymphocyte % 18.8 % (19-41); Mean Corp Hgb Conc 31.7 g/dL (32-36); Mean Corpuscular Volume 78.7 fL (81-99); Mean Platelet Vol. 10.7 fl (6.2-12.0); Monocyte# 0.68 X10^3/uL; Monocyte% 6.3 % (0-10); NRBC Flagged by Analyzer 0 % (0-5); Neutrophil % 72.3 % (47-70); Platelet Count 283 K/mm3 (150-450); RBC Distribution Width CV 15.1 % (11.6-14.6); RBC Distribution Width SD 42.7 fl (35.1-43.9); Red Blood Count 5.41 M/mm3 (4.2-5.4); White Blood Count 10.8 K/mm3 (4.4-11.0)
[2024-05-12] MEDS: Ondansetron 4 MG/2 ML Vial IV (18:42)
[2024-05-12] MEDS: Ketorolac 30 MG/ML Syringe IV (18:42)
[2024-05-12] MEDS: 0.9% Normal Saline (1000mL) 1,000 ML 999 ML IV (18:42)
[2024-05-12 18:46] LABS: AST(SGOT) 10 U/L (15-37); Alanine Aminotransfer ALT/SGPT 16 U/L (13-56); Albumin, Serum 3.9 g/dL (3.2-5.0); Alkaline Phosphatase 102 U/L (45-117); Anion Gap 9 (5-15); BUN 23 mg/dL (7-18); BUN/Creat Ratio 29.3 RATIO (10-20); Calcium,Total 9.1 mg/dL (8.5-10.1); Chloride 107 mmol/L (98-107); Creatinine, Serum 0.78 mg/dL (0.55-1.02); EST Glomerular Filtration Rate 90 mL/min (>60); Est Glom Filt Rate - Afr Amer 109 mL/min (>60); Estimated Creatinine Clearance 164.34 ml/min; Globulin 3.8 g/dL (2.2-4.2); Glucose 108 mg/dL (74-106); Potassium 3.5 mmol/L (3.5-5.1); Protein, Total 7.7 g/dL (6.4-8.2); Sodium Level 138 mmol/L (136-145)
[2024-05-12 18:52] LABS: Internal QC Validated? YES +Cl - CLEAR BKGD; Pregnancy, Serum, hCG Quali. NEGATIVE Negative
[2024-05-12 19:33] LABS: Bacteria 0 SEEN /hpf (None Seen); Mucous, Urine 0 SEEN /hpf (<or=2+); Red Blood Cells-Urine 0 SEEN /hpf (0-5); Squamous Epithelial Cells - UA 0 SEEN /hpf (5-10); White Blood Cells 0 SEEN /hpf (0-5)
[2024-05-12 19:36] LABS: Color, Urine Yellow (Yellow); Glucose, Dipstick Normal (Normal); Ketone-Dipstick Negative (Negative); Leukocyte Esterase-Dipstick Negative /ul (Negative); Nitrite-Dipstick Negative (Negative); Occult Blood-Urine 10 /ul (Negative); Protein-Dipstick Negative (Negative); Specific Gravity, Urine 1.015 (1.002-1.030); Urine Bilirubin Dipstick Negative (Negative); Urine Clarity Clear (Clear); Urine Urobilinogen Normal (Normal)
[2024-05-12 19:58] VITALS: BP 120/89; PULSE 69; RESP 17; O2SAT 99
[2024-05-12 20:27] VITALS: BP 128/89; PULSE 97; RESP 18; TEMP 36.2; O2SAT 99
== END 2024-05-12 20:29 | disposition home or self-care (01) ==
PROVIDERS: Physician Assistant; Emergency Provider Emergency Medicine; PCP Nurse Practitioner Family; Visit Provider Emergency Medicine
DX: R10.84 Generalized abdominal pain (principal); R11.0 Nausea
CPT/HCPCS: 80053; 81001; 84703; 85025; 96361; 96374; 96375; 96376; 99283; J7030; A4216; J2405

== ENCOUNTER → 2024-11-13 | Outpatient (CLI) | payer MEDICARE, MEDICAID, SELFPAY ==
[2024-11-22 11:07] LABS: HPV APTIMA, High Risk Negative (Negative)
== END | disposition home or self-care (01) ==
LOC: LABSPEC 16:31
PROVIDERS: PCP Nurse Practitioner Family; Referring Provider Nurse Practitioner Women's Health; Visit Provider Nurse Practitioner Women's Health
DX: R10.2 Pelvic and perineal pain (principal); N89.8 Other specified noninflammatory disorders of vagina; Z12.4 Encounter for screening for malignant neoplasm of cervix
CPT/HCPCS: 87070; 87205; 87624; 88175; G0145

== ENCOUNTER 2024-11-28 15:19 | Emergency (ER) | payer MEDICARE, MEDICAID, SELFPAY ==
[2024-11-28 15:21] VITALS: BP 145/111; PULSE 108; RESP 18; TEMP 36; O2SAT 95; BMI 58.6
--- NOTE | 2024-11-28 16:35 | ED.VIS.BACK ---
HPI History of Present Illness Chief Complaint: Back Informant: patient Narrative Narrative: Patient with chronic low back pain and burning numbness that comes around into her groins, she has some burning that goes down her legs into her feet bilaterally, and had an MRI last January showing something compressing her spinal cord a little with regards to some discs. Following with neurosurgery at [facility], saw them a week ago and has an outpatient MRI scheduled, but called because she feels like the symptoms are getting worse. The majority of the worsening is pain in her low back, and she has had the numbness and burning that is a little more prominent, not different location, she felt like she was prior urinating herself yesterday and ended up doing so, about 5 days ago she had an episode of diarrhea and did not realize she had gone, however when she wipes in her perineum she has no numbness or paresthesias. Today she has been urinating normally when she does feel the need to go and empties. She does not have dysuria, abdominal pain, fevers or chills. She denies having any weakness in her legs now or before. [facility] Medical History Spontaneous Obesity affecting History of gestational diabetes mellitus (GDM) in prior , currently Hx of pre-eclampsia in prior , currently Spotting in early Supervision of high-risk History of kidney infection Seasonal allergies Hx of abnormal cervical Pap smear Preeclampsia History of hypertension Depression History of diabetes mellitus Home Medications ?Medication ?Instructions ?Recorded ?Last Taken ?Type albuterol sulfate 90 mcg/actuation 1 - 2 puff inhalation Q4H PRN PRN 10/14/17 06/11/18 History aerosol inhaler (Ventolin HFA) Sob &/Or Wheezing ehzfxloa-wrjiwjlkm-kqnauwanz 3.5 4 drp TID 02/23/19 Unknown History mg/mL-10,000 unit/mL-1 % ear solution bupropion HCl 300 mg 24 hr tablet, 300 mg PO QAM 08/21/24 Unknown History extended release (Wellbutrin XL) buspirone 30 mg tablet 30 mg PO BID 08/21/24 Unknown History hydroxyzine pamoate 25 mg capsule 25 mg PO TID PRN 08/21/24 Unknown History (Vistaril) clonazepam 1 mg tablet (Klonopin) 1 mg PO QDAY 08/30/24 Unknown History hydrocodone-acetaminophen 5-325mg 1 tab PO Q6H PRN PRN Pain 3 days 11/28/24 Unknown Rx 5mg-325mg #10 TABLETS prednisone 20 mg tablet 40 mg (2 x 20 mg) PO DAILY 5 days 11/28/24 Unknown Rx #10 tabs Allergy/AdvReac Type Severity Reaction Status Date / Time adhesive tape (tape) Allergy Mild Rash Verified 11/28/24 15:21 metformin Allergy Mild Abd Verified 11/28/24 15:21 cramps/diarrhea clindamycin AdvReac Upset Verified 11/28/24 15:21 Stomach Family History Mother Diabetes Heart disease CHF Kidney disease Cancer, Onset Age: 59 adrenal gland Brother Diabetes Brother Hypertension Heart disease Grandmother Heart disease maternal Surgical History H/O section History of kidney surgery Hx of cholecystectomy Social History adopted: No household members: children number of children: 1 current occupational status: unemployed current occupation: [employer] pets and animals: Yes (Avoid litter box) pets and animals: cat(s) history of recent travel: No sexually active: Yes Smoking Status: Former smoker Electronic Cigarette Use: with nicotine quit status: considering quitting alcohol intake: never substance use type: does not use well-balanced diet: rarely or never caffeine: No eating out: 1-3 times/week during the past year weight has: remained stable what type of physical activity do you participate in: none haile/scientology: Yarsani seatbelt use: always do you feel safe at home: Yes additional social history: FOB Stan ROS ROS ED Constitutional Constitutional ED: Denies chills or fever(s) Gastrointestinal Gastrointestinal: Denies abdominal pain, constipation, fecal incontinence, nausea or vomiting Genitourinary Genitourinary ED: Reports other Details: no urinary retention ; Denies abdominal discomfort or urinary incontinence Musculoskeletal Musculoskeletal: Reports as per HPI and back pain; Denies neck pain Integumentary Denies rash or wounds Neurologic Neurologic: Denies headache(s), paresthesias or weakness EXAM Physical Exam Const Vital Signs: 11/28/24 15:21 Temperature 96.8 F L Temperature Source Temporal Pulse Rate 108 H Respiratory Rate 18 Blood Pressure 145/111 H Blood Pressure Mean 122 Pulse Ox 95 Oxygen Delivery Method Room Air Positive well nourished, well developed and obese General Appearance ED: well developed and NAD Nutritional Appearance: obese HEENT Negative for trauma or tenderness Eyes PERRL and EOMs intact bilaterally Neck full ROM and supple GI normal to inspection, nondistended, normoactive bowel sounds, soft to palpation and non-tender Narrative: Normal perianal sensation. Normal rectal tone. Examined with nurse escort. Back/Spine normal to inspection Cervical Spine: Negative for cervical spine tenderness Lumbar Spine / Lower Back: ROM limited and straight leg raise negative bilaterally; Negative for lumbar spinal tenderness or paraspinal muscle tenderness Extremity normal to inspection, full ROM and no pedal edema Neuro oriented x3, no sensory deficits noted and gait normal Neuro Narrative: DTR examination is limited by the patient's morbid obesity. Sensorium / Orientation: alert Motor Exam: strength 5/5 throughout and clonus absent Deep Tendon Reflexes: Rt Patellar (L4): 1+, Lt Patellar (L4): 1+, Rt Ankle (S1): 1+ and Lt Ankle (S1): 1+ Deep Tendon Reflexes Back: Rt Patellar (L4): 1+, Lt Patellar (L4): 1+, Rt Ankle (S1): 1+ and Lt Ankle (S1): 1+ Plantar Reflex: Downgoing: bilateral Psych mental status grossly normal and thought process normal Skin no rashes or lesions noted and no wounds MDM MDM MDM Narrative Medical decision making narrative: With the patient urinate and did a postvoid residual. It is about 30 mL. I discussed with neurosurgery on-call for Dr. Carlin at [facility]. She agrees with my assessment that based on my information and exam that the patient does not need an emergent MRI. We do not have an telemetry technician here today since it is a holiday, they would have to be called in from home. She agrees that the results would be very unlikely to change the patient's outcome today, as she does not need emergency surgery based on my findings and the patient's symptoms. Patient is driving herself home. She can walk normally, other than having pain/antalgic gait. She been taking Tylenol and ibuprofen at home. Neurosurgery was in agreement with giving her short course of pain control and 5-day course of prednisone and following up closely in the office, there are appointments available this week. She has an MRI scheduled for about 5 days from now. She is instructed to follow over the phone with her neurosurgery office if her symptoms change. Her urinalysis here does not indicate acute infection. Lab Data Attestation: I reviewed the patient's lab results. Labs: Laboratory Results - last 24 hr 11/28/24 16:29 Urine Color Yellow Urine Clarity Sl. Cloudy Urine pH 5.0 Ur Specific [place] 1.015 Urine Protein 15 H Urine Glucose (UA) Normal Urine Ketones Negative Urine Occult Blood 10 H Urine Nitrite Negative Urine Bilirubin Negative Urine Urobilinogen Normal Ur Leukocyte Esterase 100 H Urine RBC 0-5 SEEN Urine WBC 5-10 SEEN Ur Squamous Epith Cells 5-10 SEEN Urine Bacteria RARE Urine Mucus 1+ Management Discussion w/another healthcare provider: [facility] Discharge Plan Triage Chief Complaint: Back ED Provider: Deacon Gauthier Dx/Rx/DC Orders Clinical Impression: Acute exacerbation of chronic low back pain, Lumbar disc disease Instructions: ED Degenerative Disk Disease Prescriptions: New prednisone 20 mg tablet 40 mg PO DAILY 5 Days Qty: 10 0RF hydrocodone-acetaminophen 5-325 mg tablet 1 tab PO Q6H PRN PRN (Reason: Pain) 3 Days Qty: 10 0RF No Action buspirone 30 mg tablet 30 mg PO BID bupropion HCl [Wellbutrin XL] 300 mg tablet extended release 24 hr 300 mg PO QAM hydroxyzine pamoate [Vistaril] 25 mg capsule 25 mg PO TID PRN clonazepam [Klonopin] 1 mg tablet 1 mg PO QDAY albuterol sulfate [Ventolin HFA] 1 INHALER inhaler 1 - 2 puff inhalation Q4H PRN PRN (Reason: Sob &/Or Wheezing) [id number] 0 solution 4 drp Left Ear TID Primary Care Provider: Sonja Farnsworth NP Referrals: Doctor,Your [Non-Staff] - As soon as possible (Call Dr. Carlin's office for appointment this week) Print Language: Guatemalan Disposition Disposition: Home, Self Care
[2024-11-28 16:37] LABS: Color, Urine Yellow (Yellow); Glucose, Dipstick Normal (Normal); Ketone-Dipstick Negative (Negative); Leukocyte Esterase-Dipstick 100 /ul (Negative); Nitrite-Dipstick Negative (Negative); Occult Blood-Urine 10 /ul (Negative); Protein-Dipstick 15 mg/dl (Negative); Specific Gravity, Urine 1.015 (1.002-1.030); Urine Bilirubin Dipstick Negative (Negative); Urine Clarity Sl. Cloudy (Clear); Urine Urobilinogen Normal (Normal)
[2024-11-28 16:48] LABS: Red Blood Cells-Urine 0-5 SEEN /hpf (0-5); Squamous Epithelial Cells - UA 5-10 SEEN /hpf (5-10); White Blood Cells 5-10 SEEN /hpf (0-5)
[2024-11-28 16:49] LABS: Bacteria RARE /hpf (None Seen); Mucous, Urine 1+ /hpf (<or=2+)
[2024-11-28] MEDS: Ketorolac 60 MG/2 ML Vial IM (17:09)
[2024-11-28 17:19] VITALS: PULSE 92; RESP 18; O2SAT 97
== END 2024-11-28 18:16 | disposition home or self-care (01) ==
PROVIDERS: Emergency Provider Emergency Medicine; PCP Nurse Practitioner Family; Visit Provider Emergency Medicine
DX: M54.50 Low back pain, unspecified (principal); E66.01 Morbid (severe) obesity due to excess calories; E11.9 Type 2 diabetes mellitus without complications; M51.369 Other intervertebral disc degeneration, lumbar region without mention of lumbar back pain or lower extremity pain; G89.29 Other chronic pain; I10 Essential (primary) hypertension; F32.A Depression, unspecified; Z88.1 Allergy status to other antibiotic agents; Z90.49 Acquired absence of other specified parts of digestive tract; Z87.448 Personal history of other diseases of urinary system; Z87.891 Personal history of nicotine dependence; Z79.899 Other long term (current) drug therapy
CPT/HCPCS: 81001; 96372; 99282

== ENCOUNTER → 2025-04-10 | Outpatient (CLI) | payer MEDICARE, MEDICAID, SELFPAY ==
[2025-04-10 16:25] LABS: HIV Nonreactive (Nonreactive); Hepatitis C Antibody Nonreactive (Nonreactive); Syphilis Antibodies Nonreactive (Nonreactive)
[2025-04-10 17:27] LABS: Hepatitis B Surface Antigen Nonreactive (Nonreactive)
[2025-04-13 04:07] LABS: Chlamydia By Nucleic Acid AMP Negative (Negative); Gonococcus By Nucleic Acid AMP Negative (Negative)
== END | disposition home or self-care (01) ==
PROVIDERS: PCP Nurse Practitioner Family; Referring Provider Nurse Practitioner Family; Visit Provider Nurse Practitioner Family
DX: N89.8 Other specified noninflammatory disorders of vagina (principal); R53.83 Other fatigue
CPT/HCPCS: 36415; 86703; 86780; 86803; 87070; 87205; 87340; 87491; 87591